=== PATIENT | female | born 1990 | race Caucasian/White ===

== ENCOUNTER 2020-06-12 12:31 | Emergency (ER) | payer OTHER, SELFPAY ==
[2020-06-12 12:59] VITALS: BP 139/98; PULSE 87; RESP 18; TEMP 36.5; O2SAT 100
--- NOTE | 2020-06-12 13:08 | ED.SKABFB ---
HPI - Skin/Abscess/Foreign Bdy General Chief complaint: Skin/Abscess/Foreign Body Stated complaint: blister on upper lip Time Seen by Provider: 06/12/20 13:08 Source: patient and RN notes reviewed Mode of arrival: ambulatory Limitations: no limitations History of Present Illness HPI narrative: 30-year-old female presents with concern for fever blister on her upper lip. Reports history of getting these, has been treated before with Valtrex. She reports she tried Abreva with no relief. She reports the blisters painful. MD complaint: lesion Related Data Home Medications Medication Instructions Recorded Confirmed levonorgestrel [Mirena] 1 device INTRAUTERINE ONCE 06/12/20 06/12/20 Allergies Allergy/AdvReac Type Severity Reaction Status Date / Time No Known Allergies Allergy Verified 06/12/20 13:13 Review of Systems Review of Systems: Narrative: CONSTITUTIONAL: Denies malaise, chills, sweats, or fever. EYES: Denies visual changes, redness, or discharge. ENT: Denies rhinorrhea, congestion, sinus pain, otalgia or sore throat. Reports oral herpes lesion CARDIOVASCULAR: Denies chest pain, palpitations RESPIRATORY: Denies cough or dyspnea. SKIN: Denies rash or itching. MUSCULOSKELETAL: Denies myalgia. NEUROLOGIC: Denies headache. All systems reviewed & are unremarkable except as noted in HPI and below PMFSH Social History Social History Smoking status: Never smoker Substance use: never Gender identity (if verbalized by the patient): Female Spiritual care concerns: No Comments At time of signature, agree with nursing past medical, surgical, social and family history. There is no relevant family history pertinent to the presenting complaint Exam Narrative: Exam Narrative: GENERAL: Well-appearing, well-nourished, and in no acute distress. HEAD: Normocephalic, atraumatic. EYES: PERRLA, conjunctivae clear, and EOMI. No nystagmus. ENT: Nares clear. Mucous membranes moist. Oropharynx without erythema or lesions. Oral herpes lesion noted on upper lip NECK: Supple. CHEST: No respiratory distress. Speaks in full sentences. HEART: Regular rate and rhythm. SKIN: Warm, dry, no rash. NEURO: Alert and oriented x3. N PSYCH: Normal mood and affect Course Course Emergency Course: Patient is aware of diagnosis, understands and agrees to treatment plan. Anticipatory guidance given. Patient agrees to follow-up as directed and is aware of reasons to seek care at the emergency department. Portions of this record may have been created with voice recognition software Vital Signs Vital signs: Vital Signs Temperature 97.7 F 06/12/20 12:59 Pulse Rate 87 06/12/20 12:59 Respiratory Rate 18 06/12/20 12:59 Blood Pressure 139/98 H 06/12/20 12:59 Pulse Oximetry 100 06/12/20 12:59 Temperature 97.7 F 06/12/20 12:59 Pulse Rate 87 06/12/20 12:59 Respiratory Rate 18 06/12/20 12:59 Blood Pressure 139/98 H 06/12/20 12:59 Pulse Oximetry 100 06/12/20 12:59 Reviewed. Patient has been instructed to follow up with her primary care provider within the next week regarding her elevated blood pressure today. MDM - Skin/Abscess/Foreign Bdy MDM Narrative Medical decision making narrative: Exam findings show no acute concerns or changes; patient is non-toxic appearing and is in no distress. Patient is appropriate for outpatient treatment and follow-up. Critical Care Time Critical Care Time Critical Care Time: No Discharge Plan Discharge Clinical Impression: Oral herpes simplex infection Patient Disposition: Home, Self-Care Condition: Stable Instructions: Antibiotic Form, Oral Herpes Simplex Virus Infections (ED) Additional Instructions: 1) Please follow-up with your primary care doctor if you develop new concerns or symptoms. 2) If you have any urgent concerns please go to the ER. 3) Please take medications as prescribed and continue taking your home medications as usual. 4) Please read and
== END 2020-06-12 13:32 | disposition home or self-care (01) ==
PROVIDERS: Emergency Provider Nurse Practitioner
DX: B00.1 Herpesviral vesicular dermatitis (principal)
CPT/HCPCS: 99213; G0463

== ENCOUNTER 2021-02-14 15:35 | Emergency (ER) | payer OTHER, SELFPAY ==
[2021-02-14 15:43] VITALS: BP 120/69; PULSE 72; RESP 16; TEMP 35.9; O2SAT 100
--- NOTE | 2021-02-14 15:45 | ED.URI ---
HPI - URI/Sore Throat General Chief Complaint: Upper Respiratory Infection Stated Complaint: sinus infection Time Seen by Provider: 02/14/21 15:46 Source: patient and RN notes reviewed Mode of arrival: ambulatory Limitations: no limitations History of Present Illness HPI Narrative: 31-year-old female presents to the [facility] with runny nose, sinus congestion since Wednesday, 4 days. Has tried [id number] medications with minimal to no relief. Patient reports that she had Covid last month and does not feel the same. Related Data Home Medications Medication Instructions Recorded Confirmed levonorgestrel [Mirena] 1 device INTRAUTERINE ONCE 06/12/20 06/12/20 Allergies Allergy/AdvReac Type Severity Reaction Status Date / Time No Known Allergies Allergy Verified 02/14/21 15:40 Review of Systems Review of Systems: All systems reviewed & are unremarkable except as noted in HPI and below Constitutional: Constitutional: Reports no additional constitutional complaints Eyes: Eyes: Reports no additional eye complaints ENT: Reports as per HPI, Reports nasal congestion and Denies sore throat Cardiovascular: Cardiovascular: Reports no additional cardiovascular complaints Respiratory: Respiratory: Reports no additional respiratory complaints Genitourinary: Genitourinary: Reports no additional female genitourinary complaints Musculoskeletal: Musculoskeletal: Reports no additional musculoskeletal complaints Integumentary/Breasts: Skin/Breast: Reports system reviewed and no additional complaints, except as docu Neurologic: Reports system reviewed and no additional complaints, except as documented Psychiatric: Psychiatric: Reports no additional psychiatric complaints Allergic/Immunologic: Allergic/Immunologic: Reports no additional allergic/immunologic complaints PMFSH Social History Social History Smoking status: Never smoker Substance use: never Gender identity (if verbalized by the patient): Female Spiritual care concerns: No Comments At the time of my signature, I reviewed and agree with the nursing past medical, surgical, social, and family history. There is no relevant family history pertinent to the patient complaint. Exam Const: General: no acute distress, alert and ill appearing acutely (Mildly) Nutritional Appearance: well nourished Orientation/consciousness: patient oriented x3 Limitations: no limitations HENMT: Head: normal to inspection Ears: external ears normal, TM's normal bilaterally and EAC's normal General nose exam: Normal external nose present and Abnormal mucous membranes and turbinates present boggy; not erythematous Face and sinus: face symmetric, no ecchymosis and sinus tenderness frontal and maxillary Mouth: Yes Normal oral and palatal mucosa present and Yes lip normal Throat: posterior oropharynx normal and uvula midline Eyes: Conjunctivae: conjunctivae normal Pupils: Equal, round and reactive pupils present Neck: Neck: normal visual inspection, no lymphadenopathy and no meningeal signs Chest: Chest palpation & inspection: normal inspection of the chest Resp: Effort & Inspection: normal respiratory effort Auscultation: clear to auscultation bilaterally Cardio: Rate: regular rate Rhythm: regular rhythm GI: GI Palp: Yes Soft to palpation and No Tenderness to palpation present (GI) : General: Yes no CVA tenderness Back/Spine/Pelvis: Back: no CVA tenderness Skin: General skin exam: normal color Rashes: no rashes Wounds: no wounds Neuro: General: patient oriented x3, moves all extremities, no meningeal signs and no focal motor deficits Speech: normal speech Gait exam (Neuro): Normal gait present Extrem: General: normal to inspection Psych: Appearance: grossly normal and well kempt Mental Status: mental status grossly normal Affect: normal affect Attitude: cooperative Thought content: Yes Normal thought content present Course Course Emergency Course: D
== END 2021-02-14 16:23 | disposition home or self-care (01) ==
PROVIDERS: Emergency Provider Nurse Practitioner
DX: J32.9 Chronic sinusitis, unspecified (principal); B34.9 Viral infection, unspecified
CPT/HCPCS: 87426; 87804; 99213; C9803; G0463

== ENCOUNTER 2023-06-03 20:30 | Emergency (ER) | payer OTHER, SELFPAY ==
[2023-06-03 20:32] VITALS: BP 147/78; PULSE 98; RESP 16; TEMP 36.2; O2SAT 99
--- NOTE | 2023-06-03 22:34 | ED.SKABFB ---
HPI - Skin/Abscess/Foreign Bdy General Chief complaint: Skin/Abscess/Foreign Body Stated complaint: abscess in back of head Time Seen by Provider: 06/03/23 22:19 Source: patient Mode of arrival: ambulatory Limitations: no limitations History of Present Illness HPI narrative: This is a 33-year-old female that presents to the emergency department for this on her scalp. Present over the last couple of days. She tried to pop it yesterday. Her pain got worse which prompted her to be seen. Denies fevers or drainage. Related Data Home Medications Medication Instructions Recorded Confirmed levonorgestrel 21 mcg/24 hours (8 1 device intrauterine ONCE 06/12/20 06/12/20 yrs) 52 mg intrauterine device (Mirena) Allergies Allergy/AdvReac Type Severity Reaction Status Date / Time No Known Allergies Allergy Verified 06/03/23 20:30 Review of Systems Review of Systems: CONSTITUTIONAL: Denies fever SKIN: Reports edema and erythema All systems reviewed & are unremarkable except as noted in HPI and below PMFSH Past Medical History Medical History (Updated 06/03/23 @ 23:07 by Sol Plascencia PA-C) No active medical problems Social History Social History Smoking status: Never smoker Substance use: never Gender identity (if verbalized by the patient): Female Spiritual care concerns: No Exam Narrative: GENERAL: Well-appearing, well-nourished, and in no acute distress. HEAD: Normocephalic, atraumatic. 1.5cm circular area of erythema and edema with central fluctuance EYES: EOMI. NECK: Supple. No adenopathy or masses. CHEST: Clear to auscultation. No respiratory distress. No wheezes rales or rhonchi HEART: Regular rate and rhythm. No murmur heard. Normal peripheral pulses. EXTREMITIES: Normal range of motion. No edema. SKIN: Warm, dry, no rash. NEURO: No focal deficits. Alert and oriented x3. PSYCH: Normal mood and affect Course Course Emergency Course: Patient updated agrees with plan of care. Educated on wound care Vital Signs Vital signs: Vital Signs Temperature 97.2 F L 06/03/23 20:32 Pulse Rate 98 06/03/23 20:32 Respiratory Rate 16 06/03/23 20:32 Blood Pressure 147/78 H 06/03/23 20:32 Pulse Oximetry 99 06/03/23 20:32 Oxygen Delivery Room Air 06/03/23 20:32 Temperature 97.2 F L 06/03/23 20:32 Pulse Rate 98 06/03/23 20:32 Respiratory Rate 16 06/03/23 20:32 Blood Pressure 147/78 H 06/03/23 20:32 Pulse Oximetry 99 06/03/23 20:32 Oxygen Delivery Room Air 06/03/23 20:32 Procedures Abscess I/D scalp: Date of Incision: 06/03/23 Time of Incision: 23:11 Local Anesthetic: lidocaine 1% and with epi Amount of anesthesia used (mL): 2 Technique: incised with #11 blade Packing used?: none I&D Results: Pus and Blood MDM - Skin/Abscess/Foreign Bdy MDM Narrative Medical decision making narrative: Patient presents to the emergency department for a small abscess present on her scalp. She is afebrile and nontoxic appearing. Abscess was successfully drained. Patient will be started on p.o. antibiotics. She is to follow up with her primary provider. She was given warnings to return to the ER Differential Diagnosis Differential diagnosis: Likely abscess of skin or subcutaneous tissue and cellulitis Critical Care Time Critical Care Time Critical Care Time: No Discharge Plan Discharge Clinical Impression: Abscess Patient Disposition: Home, Self-Care Condition: Stable Instructions: Antibiotic Form, Abscess (ED) Additional Instructions: Return if symptoms worsen or concerns: any increase in redness, swelling, pain or fever over 101 Take antibiotics as directed. Clean wound with mild soapy water. Apply antibiotic ointment and clean dressing at least three times daily. Warm compresses 3 times a day for 30 minutes each Follow up with primary care in the next 2-3 days for re-evaluation Pr
[2023-06-03] MEDS: IBUPROFEN 600 MG TABLET PO (22:40)
== END 2023-06-03 23:54 | disposition home or self-care (01) ==
PROVIDERS: Emergency Provider Physician Assistant; PCP Family Medicine
DX: L02.811 Cutaneous abscess of head [any part, except face] (principal)
CPT/HCPCS: 10060; 87070; 87077; 87186; 87205; 99283; A9270

== ENCOUNTER 2024-11-23 18:19 | Emergency (ER) | payer OTHER, SELFPAY ==
--- OUTSIDE RECORDS SUMMARY | 2024-11-23 18:22 | XMS_ITS | Clinical Summary ---
Author Organization [facility] Address [address] [place] [id number] Care Team Providers Care Clothing And Textiles Teacher Name Role Phone Tono Reyes MD Unavailable [phone] Yosi Coles MD Primary Care Provider [phone] Allergies No known active allergies Medications HYDROcodone-acet aminophen (NORCO) 5-325 mg per tabletIndication s:Pain Take 1 tablet by mouth every 6 (six) hours as needed for pain 10 tablet 08/26/2023 Active Active Problems Problem Noted Date Diagnosed Date Strep pharyngitis 08/26/2023 Hepatitis C 03/20/2019 Supervision of high-risk , unspecified trimester 03/13/2019 Overview (03/13/2019): [] Co-management vs. [] Full [facility] Care; Referring Provider: Tono Reyes [phone] [x] Dating Criteria: LMP 10/30/18; US 01/12/19 with LUCÍA 08/06/19 [x] Labs: Rh [A+], Ab [negative], Rubella [immune], HIV [non-reactive], HepBSAg [non-reactive], RPR [not done], GC/CT [not done] [] Genetic Screening: [x] CBC/Hgb 12.6/38.1/plt 314 [] Early 1hr GTT (if indicated) [] UCx: [] Pap: [] LD ASA (if indicated) starting at 12 weeks: [] EPDS [ ]; PNBHS referral (if indicated) 2nd Tri Labs: [] Anatomy ultrasound: [] CBC/1hr gtt at 24-28wks: [] Flu Shot (Feb-May): [] Tdap (27-36wks): [] Rhogam at 28 wks (if Rh neg): 3rd Tri Labs: [] CBC/HIV/RPR/T&S: [] GBS: [] GC/CT (if indicated): Counselling [] MOD: [] Place of delivery: [] MOC: [] Method of feeding: [] Web Solutions Architect: [] PP Depression Discussed: Social History Tobacco Use Types Packs/Day Years Used Date Smoking Tobacco: Never Assessed Personal Safety Answer Date Recorded Have you ever been in or are you currently in a harmful physical or emotional relationship or is someone making you feel afraid or unsafe? Denies 08/26/2023 Comments No Sex and Gender Information Value Date Recorded Sex Assigned at Not on file Legal Sex Female 3:03 PM CDT Gender Identity Not on file Sexual Orientation Not on file Obstetrics History Para Term AB IAB SAB Ectopic Multiple Livin g Live Births 1 Date Outcome GA Total Labor Labor/2nd/3rd Weight Sex Type Anes PTL Estelita A1 A5 Name Clin Last Filed Vital Signs Vital Sign Reading Time Taken Comments Blood Pressure 164/87 08/26/2023 11:15 AM INSTALLATION SPECIALIST Pulse 84 08/26/2023 11:15 AM INSTALLATION SPECIALIST Temperature 36.5 C (97.7 F) 08/26/2023 8:57 AM INSTALLATION SPECIALIST Respiratory Rate 18 08/26/2023 11:15 AM INSTALLATION SPECIALIST Oxygen Saturation 97% 08/26/2023 11:15 AM INSTALLATION SPECIALIST Inhaled Oxygen Concentration - - Weight 95.3 kg (210 lb) 08/26/2023 8:57 AM INSTALLATION SPECIALIST Height 165.1 cm (5' 5) 08/26/2023 8:57 AM INSTALLATION SPECIALIST Body Mass Index 34.95 08/26/2023 8:57 AM INSTALLATION SPECIALIST Plan of Treatment Health Maintenance Due Date Last Done Comments Cervical Cancer Screening 1990 Depression Screening 1990 Varicella Vaccines (1 of 2 - 13+ 2-dose series) 2003 Hepatitis B Screening 01/13/2008 Regular Well Visit/Exam 18-64 01/13/2008 Pneumococcal vaccine <65 (1 of 2 - PCV) 2009 Covid-19 Vaccine (3 - 2024-25 season) 2024 09/15/2020, 08/23/2020 Influenza Vaccine (Season Ended) 2025 02/23/2023, 07/24/2019 DTaP/Tdap/Td Vaccine (2 - Td or Tdap) 07/24/2029 07/24/2019 Hepatitis C Screening Completed 03/20/2019 , 03/20/2019, 03/20/2019, Additional history exists HPV Vaccines Aged Out No longer eligi ble based on patient's age to complete this topic Procedures Procedure Name Priority Date/Time Associated Diagnosis Comments HEPATITIS C ANTIBODY Routine 01/26/2019 from Last 3 Months or Most Recently Relevant to Health Maintenance Results * Hepatitis C antibody (01/26/2019) SCRIBED HCV ab reactive Blood specimen (specimen) us Tono Reyes MD LAB MICROBIOLOGY - GENERAL OR DERABLES Final Result from Last 3 Months or Most Recently Relevant to Health Maintenance Care Teams Clothing And Textiles Teacher Relationship Specialty Start Date End Date Yosi Coles MD [address] [place] [address] [place] [address] PCP - General Family Medicine 08/26/23 Tono Reyes MD [address] [facility] [place] [address] Referring Physician Obstetrics and Gynecology 02/06/19
--- OUTSIDE RECORDS SUMMARY | 2024-11-23 18:22 | XMS_ITS | Continuity of Care Document ---
Author Organization [facility] Address [address] [place] [address] [address] [place] [address] Phone Care Team Providers Care Aerospace Engineer Officer Armament Name Role Phone Boyd OD, Amrik Unavailable Unavailable Procedures Procedure Date Eye Exam, New Patient Refraction Advance Directives Directive Yes / No Effective Date File Name No Information Encounters Encounter Description Practice Location Reason(s) For Visit Diagnoses Date Provider Providers Copied on Encounter [facility], [id number] [place] [address] [address], [place], [place], [id number], [place] tel:[phone] [facility] No Information 5-200 7 Boyd OD Amrik. [address] [place] , [address], [place], [address], [place]. tel:[phone] Family History Family Member Type Diagnosis Age At Onset No Information Payers Payer name Insurance type Covered republican ID Authoriza tion(s) Medicaid [facility] [id number] Social History Type Description Quantity Date Captured Comments Sex Female Smoking Status No Information Chief Complaint And Reason For Visit No Information Reason For Referral Reason For Referral No Information History Of Present Illness Encounter Date Complaint History Of Prese nt Illness No Information Functional Status Date Functional Assessmen t No Information Instructions Date Instruction Additional Infor mation No Information Assessments Type Assessment Date No Information Patient Care Teams Name Effective Dates (start - stop) Status Members No Information
--- OUTSIDE RECORDS SUMMARY | 2024-11-23 18:22 | XMS_ITS | Referral Summary ---
Author Organization [facility] Address [address] [place] [id number] Care Team Providers Care Etl Architect Name Role Phone Tono Reyes MD Unavailable [phone] Yosi Coles MD Primary Care Provider [phone] Allergies No known active allergies Medications HYDROcodone-acet aminophen (NORCO) 5-325 mg per tabletIndication s:Pain Take 1 tablet by mouth every 6 (six) hours as needed for pain 10 tablet 08/26/2023 Active Active Problems Problem Noted Date Diagnosed Date Strep pharyngitis 08/26/2023 Hepatitis C 03/20/2019 Supervision of high-risk , unspecified trimester 03/13/2019 Overview (03/13/2019): [] Co-management vs. [] Full [facility] Care; Referring Provider: Tono Reyes [phone] [x] Dating Criteria: LMP 10/30/18; US 01/12/19 [...] [] MOC: [] Method of feeding: [] Board Operator: [] PP Depression Discussed: Social History Tobacco [...] on file Sexual Orientation Not on file Last Filed Vital Signs Vital Sign Reading Time Taken Comments Blood Pressure 164/87 08/26/2023 11:15 AM SPACE PLANNER Pulse 84 08/26/2023 11:15 AM SPACE PLANNER Temperature 36.5 C (97.7 F) 08/26/2023 8:57 AM SPACE PLANNER Respiratory Rate 18 08/26/2023 11:15 AM SPACE PLANNER Oxygen Saturation 97% 08/26/2023 11:15 AM SPACE PLANNER Inhaled Oxygen Concentration - - Weight 95.3 kg (210 lb) 08/26/2023 8:57 AM SPACE PLANNER Height 165.1 cm (5' 5) 08/26/2023 8:57 AM SPACE PLANNER Body Mass Index 34.95 08/26/2023 8:57 AM SPACE PLANNER Plan of Treatment Not on file Procedures Procedure Name Priority Date/Time Associated Diagnosis Comments HEPATITIS C ANTIBODY Routine 01/26/2019 from Last 3 Months or Most Recently Relevant to Health Maintenance Results * Hepatitis C antibody (01/26/2019) SCRIBED HCV ab reactive Blood specimen (specimen) us Tono Reyes MD LAB MICROBIOLOGY - GENERAL OR DERABLES Final Result from Last 3 Months or Most Recently Relevant to Health Maintenance Care Teams Etl Architect Relationship Specialty Start Date End Date Yosi Coles MD [address] [facility] [place] [address] PCP - General Family Medicine 08/26/23 Tono Reyes MD [address] [place], [place] [id number] Referring Physician Obstetrics and Gynecology 02/06/19
--- OUTSIDE RECORDS SUMMARY | 2024-11-23 18:22 | XMS_ITS | Data Portability ---
Author Organization [place] [facility] [place], Main Office Address [address] [place] [address] Care Team Providers Care Asphalt Paver Operator Name Role Phone YOSI COLES Primary Care Provider YOSI COLES Referring Provider YOSI COLES Primary Care Provider [phone] Assessment Encounter Date Assessment Date Assessment LastModified by Organization Details LastModified Time 01/07/2023 01/07/2023 32 yo F with - VIT B12 DEFICIENCY, new - MICROSCOPIC HEMATURIA, new - PRE-DM, new - ELEVATED LFTs - HEP C, chronic - DEPRESSION - ANXIETY - CHRONIC INSOMNIA - CHRONIC NECK PAIN - CHRONIC HEADACHES - MIGRAINE - GERD - FOOT CALLUS - OBESITY II HbA1c: 6.0(12/09/22) X-ray C-spine: 12/09/22. Annual labs: 12/09/22. Hepatitis panel: 09/18/21. Annual labs: 08/28/21. Wt: 241(01/07/23) D/w pt in detail about her findings, recent labs & imagines and further plan of care. Will refer pt to Uro, Neuro and PT. Meds as directed. Advised pt to talk with close friend/family member on a regular basis. Educated about alarming symptoms to monitor at home and call us back Or get checked in ED. Pt verbalized understanding it. Diet and exercise explained. Diet and exercise explained in detail. Educated about different options for her. Safe sex education given. F/u with Counsellor as per schedule. F/u with PT as per schedule. F/u with Neuro as per schedule. F/u with Uro as per schedule. Cont f/u with GI as per schedule. Cont f/u with Gyne as per schedule. Offered to refer to Psych; but pt declined. HM: WWE - 2 yrs ago. Cont f/u with Gyne as per schedule. Flu - Pt declined. Tdap, Gardasil, Hep B - At HD/pharmacy. F/u in 1 month. A1c in 04/19. Annual labs in 12/18. Not available 01/07/2023 11:45:01 03/10/2023 03/10/2023 33 yo F with - MIDDLE BACK PAIN, Lt - VIT B12 DEFICIENCY, new - MICROSCOPIC HEMATURIA, new - PRE-DM, new - ELEVATED LFTs - HEP C, chronic - DEPRESSION - ANXIETY - CHRONIC INSOMNIA - CHRONIC NECK PAIN - CHRONIC HEADACHES - MIGRAINE - GERD - FOOT CALLUS - OBESITY II HbA1c: 6.0(12/09/22) X-ray C-spine: 12/09/22. Annual labs: 12/09/22. Hepatitis panel: 09/18/21. Annual labs: 08/28/21. Wt: 241(01/07/23) [Pt stopped] D/w pt in detail about her findings, recent labs & imagines and further plan of care. Explained about different options for her. Will do x-ray. Meds as directed. Advised pt to talk with close friend/family member on a regular basis. Educated about alarming symptoms to monitor at home and call us back Or get checked in ED. Pt verbalized understanding it. Diet and exercise explained. Diet and exercise explained in detail. Educated about different options for her. Safe sex education given. F/u with Counsellor as per schedule. F/u with PT as per schedule. F/u with Neuro as per schedule. F/u with Uro as per schedule. Cont f/u with GI as per schedule. Cont f/u with Gyne as per schedule. Offered to refer to Psych; but pt declined. HM: WWE - 2 yrs ago. Cont f/u with Gyne as per schedule. Flu - 03/20. Tdap, Gardasil, Hep B - At HD/pharmacy. F/u in 2 months. A1c in 04/19. Annual labs in 12/18. [email or web address] Not available 03/10/2023 13:05:03 07/14/2023 07/14/2023 33 yo F with - MIDDLE BACK PAIN, Lt; chronic - VIT B12 DEFICIENCY - MICROSCOPIC HEMATURIA - PRE-DM, new - ELEVATED LFTs - HEP C, chronic - DEPRESSION - ANXIETY - CHRONIC INSOMNIA - CHRONIC NECK PAIN - CHRONIC HEADACHES - MIGRAINE - GERD - FOOT CALLUS - OBESITY II HbA1c: 6.0(12/09/22) X-ray C-spine: 12/09/22. Annual labs: 12/09/22. Hepatitis panel: 09/18/21. Annual labs: 08/28/21. Wt: 241(01/07/23) [Pt stopped] D/w pt in detail about her findings, recent labs & imagines and further plan of care. Explained about different options for her. Will do x-ray. All meds verified with pt. Meds as directed. Advised pt to talk with close friend/family member on a regular basis. Educated about alarming symptoms to monitor at home and call us back Or get checked in ED. Pt verbalized understanding it. Diet and exercise explained. Diet and exercise explained in detail. Educated about different options for her. Safe sex education given. F/u with Counsellor as per schedule. F/u with PT as per schedule. F/u with Neuro as per schedule. F/u with Uro as per schedule. Cont f/u with GI as per schedule. Cont f/u with Gyne as per schedule. Offered to refer to Psych; but pt declined. HM: WWE - 2 yrs ago. Cont f/u with Gyne as per schedule. Flu - 03/20. Tdap, Gardasil, Hep B - At HD/pharmacy. F/u in few weeks for Annual exam. Annual labs in 12/18. [email or web address] Not available 07/14/2023 14:46:43 07/19/2024 07/19/2024 34 yo F with - B/L WRIT PAIN, chronic - B/L HIP PAIN, chronic - CHRONIC LOW BACK PAIN - DEPRESSION - ANXIETY - CHRONIC INSOMNIA - VIT B12 DEFICIENCY - MICROSCOPIC HEMATURIA - PRE-DM, new - ELEVATED LFTs - HEP C, chronic - CHRONIC NECK PAIN - CHRONIC HEADACHES - MIGRAINE - GERD - FOOT CALLUS - OBESITY II HbA1c: 6.0(12/09/22) X-ray C-spine: 12/09/22. Annual labs: 12/09/22. Hepatitis panel: 09/18/21. Annual labs: 08/28/21. Wt: 241(01/07/23) [Pt stopped] D/w pt in detail about her findings, recent labs & imagines and further plan of care. Explained about different options for her. Will do x-rays. Will refer pt to Psych. All meds verified with pt. Meds as directed. Advised pt to talk with close friend/family member on a regular basis. Educated about alarming symptoms to monitor at home and call us back Or get checked in ED. Pt verbalized understanding it. Diet and exercise explained. Diet and exercise explained in detail. Educated about different options for her. Safe sex education given. F/u with Psych as per schedule. F/u with Counsellor as per schedule. F/u with PT as per schedule. F/u with Neuro as per schedule. F/u with Uro as per schedule. Cont f/u with GI as per schedule. Cont f/u with Gyne as per schedule. HM: WWE - 2 yrs ago. Cont f/u with Gyne as per schedule. Flu - 03/20. Tdap, Gardasil, Hep B - At HD/pharmacy. F/u in 2-3 weeks. Annual labs in 12/18. [email or web address] Not available 07/19/2024 15:38:55 08/09/2024 08/09/2024 34 yo F with - B/L WRIT PAIN, chronic - B/L HIP PAIN, chronic - CHRONIC LOW BACK PAIN - DEPRESSION - ANXIETY - CHRONIC INSOMNIA - VIT B12 DEFICIENCY - MICROSCOPIC HEMATURIA - PRE-DM, new - ELEVATED LFTs - HEP C, chronic - CHRONIC NECK PAIN - CHRONIC HEADACHES - MIGRAINE - GERD - FOOT CALLUS - OBESITY II HbA1c: 6.0(12/09/22) X-ray b/l wrist, hips, L-spine: 08/08/24. X-ray C-spine: 12/09/22. Annual labs: 12/09/22. Hepatitis panel: 09/18/21. Annual labs: 08/28/21. Wt: 241(01/07/23) [Pt stopped] D/w pt in detail about her findings, recent labs & imagines and further plan of care. Explained about different options for her. Will refer pt to PT and Hand surgeon. All meds verified with pt. Meds as directed. Advised pt to talk with close friend/family member on a regular basis. Educated about alarming symptoms to monitor at home and call us back Or get checked in ED. Pt verbalized understanding it. Diet and exercise explained. Diet and exercise explained in detail. Educated about different options for her. Safe sex education given. F/u with Hand surgeon as per schedule. F/u with Psych as per schedule. F/u with Counsellor as per schedule. F/u with PT as per schedule. F/u with Neuro as per schedule. F/u with Uro as per schedule. Cont f/u with GI as per schedule. Cont f/u with Gyne as per schedule. HM: WWE - 2 yrs ago. Cont f/u with Gyne as per schedule. Flu - Pt declined. Tdap, Gardasil, Hep B - At HD/pharmacy. F/u in few weeks for Annual exam. Annual labs in 12/18. [email or web address] Not available 08/09/2024 16:06:52 Plan of Treatment Reminders Order Date Submit Date Provider Last Modified By Organization Details Last Modified Time Details Appointments Follow Up 15 2024 03:15P Meghna Wagner, PMHNP Not available Not available Not available Lab glycohemo globin, total, blood 2022 023 [email or web address] [facility] (Lab), [address] [place], [address], 04/22/2023 17:47:31 Referral physical therapist referral - Please call patient to schedule. 2024 025 [email or web address] [facility] Physical, Occupational [facility] Medicine [facility] Re[facility], [address] [place], [address], 09/12/2024 12:37:07 hand surgeon referral - Please call patient to schedule an appointme nt. Thank you. 2024 025 [email or web address] Wilma Crawford MD, [address] [facility] [address], [place], [address], 10/04/2024 09:11:07 psychiatr ist referral - Please call patient to schedule an appointme nt. Thank you. 2024 025 [email or web address] Velma Jonesprem Pmhnp, [address] [facility] [address], [place], [address], 08/16/2024 10:47:33 gastroent erologist referral - Please call patient to schedule appointme nt. 2023 024 [email or web address] Shaheed Gregg MD, [address] [facility], [facility] [address], [place], [address], 08/11/2023 08:39:31 urologist referral 2022 023 [email or web address] Jorge Klein MD, [address] [facility] [address], [place], [address], 02/04/2023 11:49:[address] referral 2022 023 [email or web address] Not available 02/04/2023 11:49:45 Procedures None recorded. Surgeries None recorded. Imaging XR, lumbosacr al spine, 4 or more view 2024 025 [email or web address] [facility] ([facility]), [address] [place], [address], 08/09/2024 09:44:25 XR, hip + pelvis, bilateral 2024 025 [facility] ([facility]), [address] [place], [address], 08/09/2024 09:44:25 XR, wrist, 3 or more view 2024 025 [facility] ([facility]), [address] [place], [address], 07/26/2024 12:03:49 XR, thoracic spine, 3 view 2023 024 [email or web address] 56 [facility] ([facility]), [address] [place], [address], 07/28/2023 09:46:09 XR, thoracic spine, 3 view 2022 023 [email or web address] 56 [facility] ([facility]), [address], [place], [address], 03/17/2023 11:05:05 Medication Orders diclofena c sodium 75 mg tablet,de layed release [address] [facility] [place]armacy #[id number], [address], [place], [address], 08/09/2024 16:01:44 cyclobenz aprine 10 mg tablet [address] [facility] [place]armacy #[id number], [address], [place], [address], 08/09/2024 16:01:43 hydroxyzi ne HCl 25 mg tablet [address] [facility] ([place] [place]Pharmacy #[id number], [address], [place], [address], 08/09/2024 16:01:45 trazodone 150 mg tablet 2024 025 [id number], [address], [place], [address], 08/09/2024 16:02:49 sertralin e 50 mg tablet [address]/Pharmacy #[id number], [address], [place], [address], 09/08/2024 15:31:06 topiramat e 50 mg tablet [address] [facility] [place]armacy #[id number], [address], [place], [address], 08/09/2024 16:01:44 diclofena c sodium 75 mg tablet,de layed release 2024 025 [id number], [address], [place], [address], 07/19/2024 15:27:52 cyclobenz aprine 10 mg tablet [address] [facility] [place]armacy #[id number], [address] [place], [address], 07/19/2024 15:27:33 hydroxyzi ne HCl 25 mg tablet 2024 025 [id number], [address] [place], [address], 09/17/2024 08:13:29 trazodone 150 mg tablet 2024 025 [id number], [address] [place], [address], 09/17/2024 08:13:29 bupropion HCl XL 150 mg 24 hr tablet, extended release 2024 025 [id number], [address] [place], [address], 08/09/2024 16:00:29 topiramat e 50 mg tablet [address] [facility] [place]acy #[id number], [address] [place], [address], 07/19/2024 15:27:32 diclofena c sodium 75 mg tablet,de layed release [address] [facility] [place]armacy #[id number], [address] [place], [address], 07/14/2023 14:29:12 cyclobenz aprine 10 mg tablet [address] [facility] [place]Pharmacy #[id number], [address], [place], [address], 07/14/2023 14:29:11 Trulicity 0.75 mg/0.5 mL subcutane ous pen injector [address] [facility] ([place] [place]armacy #[id number], [address] , [place], [address], 07/14/2023 14:29:11 hydroxyzi ne HCl 25 mg tablet [address] [facility] [place]armacy #[id number], [address] , [place], [address], 07/14/2023 14:29:12 neomycin- polymyxin -hydrocor t 3.5 mg-10,000 unit/mL-1 % ear drops,karen p [address] [facility] [place]armacy #[id number], [address] , [place], [address], 07/14/2023 14:31:06 trazodone 100 mg tablet [address] [facility] [place]armacy #[id number], [address] , [place], [address], 07/14/2023 14:29:11 cyanocoba lev (vit B-12) 1,000 mcg/mL injection solution 2023 024 Not available 07/14/2023 16:47:01 cyanocoba lev (vit B-12) 1,000 mcg sublingua l tablet [address] [facility] [place]armacy #[id number], [address] , [place], [address], 07/14/2023 14:29:13 topiramat e 50 mg tablet [address] [facility] ([place] [place]Pharmacy #[id number], [address] [place], [address], 07/14/2023 14:29:27 venlafaxi ne ER 75 mg capsule,e xtended release [address] [facility] [place]armacy #[id number], [address], [place], [address], 07/14/2023 14:29:13 diclofena c sodium 75 mg tablet,de layed release [address] [facility] [place]armacy #[id number], [address], [place], [address], 03/10/2023 12:48:05 cyclobenz aprine 10 mg tablet [address] [facility] [place]armacy #[id number], [address] [place], [address], 03/10/2023 12:48:06 Trulicity 0.75 mg/0.5 mL subcutane ous pen injector 2022 023 [email or web address] [id number] [address] , [place], [address], 04/12/2023 15:53:13 hydroxyzi ne HCl 25 mg tablet [address] [facility] [place] #[id number], [address] [facility] [place], [address], 03/10/2023 12:48:07 trazodone 100 mg tablet [address] [facility] [place]acy #[id number], [address] , [place], [address], 03/10/2023 12:48:06 cyanocoba lev (vit B-12) 1,000 mcg/mL injection solution 2022 023 Not available 03/15/2023 09:14:30 cyanocoba lev (vit B-12) 1,000 mcg sublingua l tablet [address] [facility] [place]acy #[id number], [address], [place], [address], 03/10/2023 12:48:06 venlafaxi ne ER 75 mg capsule,e xtended release [address] [facility] [place]acy #[id number], [address], [place], [address], 03/10/2023 12:48:06 diclofena c sodium 75 mg tablet,de layed release [address] [facility] [place] #[id number], [address] [place], [address], 01/07/2023 11:13:58 cyclobenz aprine 10 mg tablet [address] [facility] [place]acy #[id number], [address], [place], [address], 01/07/2023 11:13:58 metformin ER 500 mg tablet,ex tended release [address] [facility] [place] #[id number], [address] [place], [address], 01/07/2023 11:12:40 buspirone 10 mg tablet [address] [facility] [place]acy #[id number], [address], [place], [address], 01/07/2023 11:12:41 trazodone 50 mg tablet 2022 023 [email or web address] [id number], [address] [place], [address], 04/12/2023 15:53:18 cyanocoba lev (vit B-12) 1,000 mcg/mL injection solution 2022 023 Not available 01/07/2023 12:22:23 cyanocoba lev (vit B-12) 1,000 mcg sublingua l tablet [address] [facility] [place]acy #[id number], [address], [place], [address], 01/07/2023 11:12:56 phentermi ne 15 mg capsule [address] [facility] [place]acy #[id number], [address] [place], [address], 01/07/2023 11:15:49 Wegovy 0.25 mg/0.5 mL subcutane ous pen injector 2022 023 [email or web address] [facility][id number], [address] [place], [address], 07/14/2023 14:26:27 famotidin e 20 mg tablet [address] [facility] [place]acy #[id number], [address] [place], [address], 01/07/2023 11:12:57 topiramat e 50 mg tablet [address] [facility] [place]acy #[id number], [address], [place], [address], 01/07/2023 11:12:55 sumatript an 100 mg tablet [address] [facility] [place] #[id number], [address] [place], [address], 01/07/2023 11:12:57 venlafaxi ne ER 75 mg capsule,e xtended release 24 hr 2022 023 [email or web address] [id number] [address] [place], [address], 02/21/2024 10:02:57 Patient TargetsNo targets recorded. Patient Instructions Encounter Date Encounter Id Patient Instructions Last Modified By Organization Details Last Modified Time 07/19/2024 [id number] When You Want to Lose Weight: Care Instructions Not available 07/19/2024 15:39:08 08/09/2024 [id number] When You Want to Lose Weight: Care Instructions [email or web address] Not available 08/09/2024 16:01:36 Reason for Referral Urologist Referral for Micro scopic hematuria Referring Physician: Yosi Coles [facility], Encounter Date: 01/07/2023 Neurologist Referral for Homero keeley with aura Referring Physician: Yosi Coles [facility], Encounter Date: 01/07/2023 Clinical Pharmacist Referral for Chronic hepatitis C Please call patient to schedule appointment. Referring Physician: Yosi Coles [facility], Encounter Date: 07/14/2023 Psychiatrist Referral for De pressive disorder Please call patient to schedule an appointment. Thank you. Referring Physician: Yosi Coles [facility], Encounter Date: 07/19/2024 Hand Surgeon Referral for Bi lateral wrist pain B/l wrist pain, x-ray done Please call patient to schedule an appointment. Thank you. Referring Physician: Yosi Coles [facility], Encounter Date: 08/09/2024 Physical Therapist Referral for Chronic low back pain Please call patient to schedule. Referring Physician: Yosi Coles [facility], Encounter Date: 08/09/2024 Results Created Date Observation Date Name Description Value Unit Range Abnormal Flag Note LastModifiedBy Organization Detail LastModifiedTime 12/10/1912/09/2022 CBC/C OMPLE TE BLD COUNT W/DIF F white blood cells 6.1 x10'3 /uL 4.2-10 .8 Not Available [facility] (Lab) [address] [place], [address], 12/09/2022 12:05:09 12/10/19 23 12/09/2022 CBC/C OMPLE TE BLD COUNT W/DIF F red blood cells 4.65 x10'6 /uL 3.80-5 .20 Not Available [facility] (Lab) [address] [place], [address], 12/09/2022 12:05:09 12/10/19 23 12/09/2022 CBC/C OMPLE TE BLD COUNT W/DIF F hemoglobin 13.6 g/dL 12.0-1 5.6 Not Available [facility] (Lab) [address] [place], [address], 12/09/2022 12:05:09 12/10/19 23 12/09/2022 CBC/C OMPLE TE BLD COUNT W/DIF F hematocrit 41.4 % 35.7-4 5.7 Not Available [facility] (Lab) [address] [place], [address], 12/09/2022 12:05:09 12/10/19 23 12/09/2022 CBC/C OMPLE TE BLD COUNT W/DIF F mean red cell volume 89.0 fL 82.0-9 9.0 Not Available [facility] (Lab) [address] [place], [address], 12/09/2022 12:05:09 12/10/19 23 12/09/2022 CBC/C OMPLE TE BLD COUNT W/DIF F mean red cell hemoglobin 29.2 pg 27.0-3 3.0 Not Available [facility] (Lab) [address] [place], [address], 12/09/2022 12:05:09 12/10/19 23 12/09/2022 CBC/C OMPLE TE BLD COUNT W/DIF F mean RBC HGB concentratio n 32.9 g/dL 31.0-3 6.0 Not Available [facility] (Lab) [address] [place], [address], 12/09/2022 12:05:09 12/10/19 23 12/09/2022 CBC/C OMPLE TE BLD COUNT W/DIF F red cell distribution width 12.4 % 11.8-1 5.5 Not Available [facility] (Lab) [address] [place], [address], 12/09/2022 12:05:09 12/10/19 23 12/09/2022 CBC/C OMPLE TE BLD COUNT W/DIF F platelets 307 x10'3 /uL 150-40 0 Not Available [facility] (Lab) [address] [place], [address], 12/09/2022 12:05:09 12/10/1912/09/2022 CBC/C OMPLE TE BLD COUNT W/DIF F mean platelet volume 9.7 fL 9.0-12 .4 Not Available [facility] (Lab) [address] [place], [address], 12/09/2022 12:05:09 12/10/19 23 12/09/2022 CBC/C OMPLE TE BLD COUNT W/DIF F neutrophils 58.7 % 39.0-7 2.0 Not Available [facility] (Lab) [address] [place], [address], 12/09/2022 12:05:09 12/10/1912/09/2022 CBC/C OMPLE TE BLD COUNT W/DIF F lymphocytes 35.1 % 16.0-4 7.0 Not Available [facility] (Lab) [address] [place], [address], 12/09/2022 12:05:09 12/10/1912/09/2022 CBC/C OMPLE TE BLD COUNT W/DIF F monocytes 4.6 % 5.0-12 .0 low Not Available [facility] (Lab) [address] [place], [address], 12/09/2022 12:05:09 12/10/19 23 12/09/2022 CBC/C OMPLE TE BLD COUNT W/DIF F eosinophils 0.8 % 1.0-7. 0 low Not Available [facility] (Lab) [address] [place], [address], 12/09/2022 12:05:09 12/10/19 23 12/09/2022 CBC/C OMPLE TE BLD COUNT W/DIF F basophils 0.5 % 0.0-2. 0 Not Available [facility] (Lab) [address] [place], [address], 12/09/2022 12:05:09 12/10/19 23 12/09/2022 CBC/C OMPLE TE BLD COUNT W/DIF F immature granulocytes 0.3 % 0.00-0 .50 Not Available [facility] (Lab) [address] [place], [address], 12/09/2022 12:05:09 12/10/19 23 12/09/2022 CBC/C OMPLE TE BLD COUNT W/DIF F neutrophils, absolute count 3.59 x10'3 /uL 1.5-8. 0 Not Available [facility] (Lab) [address] [place], [address], 12/09/2022 12:05:09 12/10/19 23 12/09/2022 CBC/C OMPLE TE BLD COUNT W/DIF F lymphocytes, absolute count 2.15 x10'3 /uL 1.07-3 .43 Not Available [facility] (Lab) [address] [place], [address], 12/09/2022 12:05:09 12/10/19 23 12/09/2022 CBC/C OMPLE TE BLD COUNT W/DIF F monocytes, absolute count 0.28 x10'3 /uL 0.29-0 .99 low Not Available [facility] (Lab) [address] [place], [address], 12/09/2022 12:05:09 12/10/19 23 12/09/2022 CBC/C OMPLE TE BLD COUNT W/DIF F eosinophils, absolute count 0.05 x10'3 /uL 0.02-0 .53 Not Available [facility] (Lab) [address] [place], [address], 12/09/2022 12:05:09 12/10/19 23 12/09/2022 CBC/C OMPLE TE BLD COUNT W/DIF F basophils, absolute count 0.03 x10'3 /uL 0.01-0 .08 Not Available [facility] (Lab) [address] [place], [address], 12/09/2022 12:05:09 12/10/19 23 12/09/2022 CBC/C OMPLE TE BLD COUNT W/DIF F immature granulocytes ,absolute 0.02 x10'3 /uL 0.00-0 .05 Not Available [facility] (Lab) [address] [place], [address], 12/09/2022 12:05:09 12/10/19 23 12/09/2022 CBC/C OMPLE TE BLD COUNT W/DIF F nucleated red blood cells 0.0 % -0 Not Available [facility] (Lab) [address] [place], [address], 12/09/2022 12:05:09 12/10/19 23 12/09/2022 CBC/C OMPLE TE BLD COUNT W/DIF F NRBC# 0.00 x10'3 /uL Not Available [facility] (Lab) [address] [place], [address], 12/09/2022 12:05:09 12/10/19 23 12/09/2022 URINA LYSIS COMPL ETE/I RIS W/RFX color LIGHT- YELLOW Not Available [facility] (Lab) [address] [place], [address], 12/09/2022 12:23:29 12/10/19 23 12/09/2022 URINA LYSIS COMPL ETE/I RIS W/RFX appear TURBID abnormal Not Available [facility] (Lab) [address] [place], [address], 12/09/2022 12:23:29 12/10/19 23 12/09/2022 URINA LYSIS COMPL ETE/I RIS W/RFX specific gravity 1.021 1.001- 1.030 Not Available [facility] (Lab) [address] [place], [address], 12/09/2022 12:23:29 12/10/19 23 12/09/2022 URINA LYSIS COMPL ETE/I RIS W/RFX pH 5.0 pH_un its 5.0-9. 0 Not Available [facility] (Lab) [address] [place], [address], 12/09/2022 12:23:29 12/10/19 23 12/09/2022 URINA LYSIS COMPL ETE/I RIS W/RFX leukocytes NEGATI VE tiffany/u L negati ve- Not Available [facility] (Lab) [address] [place], [address], 12/09/2022 12:23:29 12/10/19 23 12/09/2022 URINA LYSIS COMPL ETE/I RIS W/RFX nitrite NEGATI VE negati ve- Not Available [facility] (Lab) [address] [place], [address], 12/09/2022 12:23:29 12/10/19 23 12/09/2022 URINA LYSIS COMPL ETE/I RIS W/RFX protein NEGATI VE mg/dL negati ve- Not Available [facility] (Lab) [address] [place], [address], 12/09/2022 12:23:29 12/10/19 23 12/09/2022 URINA LYSIS COMPL ETE/I RIS W/RFX glucose NORMAL mg/dL normal - Not Available [facility] (Lab) [address] [place], [address], 12/09/2022 12:23:29 12/10/19 23 12/09/2022 URINA LYSIS COMPL ETE/I RIS W/RFX ketones NEGATI VE mg/dL negati ve- Not Available [facility] (Lab) [address] [place], [address], 12/09/2022 12:23:29 12/10/19 23 12/09/2022 URINA LYSIS COMPL ETE/I RIS W/RFX urobilinogen NORMAL mg/dL normal - Not Available [facility] (Lab) [address] [place], [address], 12/09/2022 12:23:29 12/10/19 23 12/09/2022 URINA LYSIS COMPL ETE/I RIS W/RFX bilirubin NEGATI VE mg/dL negati ve- Not Available [facility] (Lab) [address] [place], [address], 12/09/2022 12:23:29 12/10/19 23 12/09/2022 URINA LYSIS COMPL ETE/I RIS W/RFX blood NEGATI VE mg/dL negati ve- Not Available [facility] (Lab) [address] [place], [address], 12/09/2022 12:23:29 12/10/19 23 12/09/2022 URINA LYSIS COMPL ETE/I RIS W/RFX white blood cells 0-8 /i??h pfi?? 0-8 Not Available [facility] (Lab) [address] [place], [address], 12/09/2022 12:23:29 12/10/19 23 12/09/2022 URINA LYSIS COMPL ETE/I RIS W/RFX red blood cells 5-10 /i??h pfi?? 0-4 abnormal Not Available [facility] (Lab) [address] [place], [address], 12/09/2022 12:23:29 12/10/19 23 12/09/2022 URINA LYSIS COMPL ETE/I RIS W/RFX bacteria NONE Not Available [facility] (Lab) [address] [place], [address], 12/09/2022 12:23:29 12/10/19 23 12/09/2022 URINA LYSIS COMPL ETE/I RIS W/RFX mucous OCCASI ONAL /i??l pfi?? abnormal Not Available [facility] (Lab) [address] [place], [address], 12/09/2022 12:23:29 12/10/19 23 12/09/2022 URINA LYSIS COMPL ETE/I RIS W/RFX squamous epithelial PACKED FIELD /i??l pfi?? abnormal Not Available [facility] (Lab) [address] [place], [address], 12/09/2022 12:23:29 12/10/19 23 12/09/2022 VITAM IN D 25-HY DROXY vd25oh 44.7 NG/mL 30-100 Vitam in D Statu s: Defic ient: <20 ng/mL Insuf ficie nt: 20-29 ng/mL Suffi cient : 30-10 0 ng/mL Not Available [facility] (Lab) [address] [place], [address], 12/09/2022 13:28:24 12/10/19 23 12/09/2022 COMPR EHENS PHI METAB OLIC PANEL sodium 138 mmol/ L 137-14 5 Not Available [facility] (Lab) [address] [place], [address], 12/09/2022 14:21:00 12/10/19 23 12/09/2022 COMPR EHENS PHI METAB OLIC PANEL potassium 4.2 mmol/ L 3.5-5. 1 Not Available [facility] (Lab) [address] [place], [address], 12/09/2022 14:21:00 12/10/19 23 12/09/2022 COMPR EHENS PHI METAB OLIC PANEL chloride 103 mmol/ L 98-107 Not Available [facility] (Lab) [address] [place], [address], 12/09/2022 14:21:00 12/10/19 23 12/09/2022 COMPR EHENS PHI METAB OLIC PANEL carbon dioxide 26 mmol/ L 22-30 Not Available [facility] (Lab) [address] [place], [address], 12/09/2022 14:21:00 12/10/19 23 12/09/2022 COMPR EHENS PHI METAB OLIC PANEL anion gap 13.2 mmol/ L 14-22 low Not Available [facility] (Lab) [address] [place], [address], 12/09/2022 14:21:00 12/10/19 23 12/09/2022 COMPR EHENS PHI METAB OLIC PANEL glucose 87 mg/dL 70-99 Not Available [facility] (Lab) [address] [place], [address], 12/09/2022 14:21:00 12/10/19 23 12/09/2022 COMPR EHENS PHI METAB OLIC PANEL BUN 14 mg/dL 8-19 Not Available [facility] (Lab) [address] [place] [place], [address], 12/09/2022 14:21:00 12/10/19 23 12/09/2022 COMPR EHENS PHI METAB OLIC PANEL creatinine 0.68 mg/dL 0.66-1 .25 Not Available [facility] (Lab) [address] [place], [address], 12/09/2022 14:21:00 12/10/19 23 12/09/2022 COMPR EHENS PHI METAB OLIC PANEL GFR >60 Refer ence Range : Elizabeth ge GFR Healt hy Adult : >60 mL/mi n/1.7 3 m2 Chron ic Kidne y Disea se: 15-60 mL/mi n/1.7 3 m2 Kidne y Failu re: <15/m L/min /1.73 m2 www.n iddk. nih.g ov The MDRD study equat ion has not been valid ated in child sagrario <18 years of age; pregn ant women ; the elder ly >85 years of age; or in some racia l or ethni c subgr oups, such as Hisok nics. Outsi de the valid ated scott eters , estim ated GFR is less accur ate, requi ring clini nick judgm ent on a case- by-ca se basis . Clini nick inter preta tion for other races and ages must be made by the clini anupama. The MDRD study equat ion has not been valid ated for the evalu ation of serum creat inine relat ed to nutri osbaldo l statu s or medic ation usage . For perso ns <18 years of age, a pedia tric GFR calcu lator is avail able on the [facility] websi te: https ://lori w.edda singletary.o rg/pr ofess ional s/kdo qi/gf r_cal culat or Not Available [facility] (Lab) [address] [place], [address], 12/09/2022 14:21:00 12/10/1912/09/2022 COMPR EHENS PHI METAB OLIC PANEL alkaline phosphatase 21 U/L 38-126 low Not Available [facility] (Lab) [address] [place], [address], 12/09/2022 14:21:00 12/10/19 23 12/09/2022 COMPR EHENS PHI METAB OLIC PANEL alanine aminotransfe rase 52 U/L 0-35 high Not Available [facility] (Lab) [address] [place], [address], 12/09/2022 14:21:00 12/10/19 23 12/09/2022 COMPR EHENS PHI METAB OLIC PANEL aspartate aminotransfe rase 32 U/L 15-37 Not Available [facility] (Lab) [address] [place], [address], 12/09/2022 14:21:00 12/10/19 23 12/09/2022 COMPR EHENS PHI METAB OLIC PANEL bilirubin, total 0.20 mg/dL 0.20-1 .30 Not Available [facility] (Lab) [address] [place], [address], 12/09/2022 14:21:00 12/10/19 23 12/09/2022 COMPR EHENS PHI METAB OLIC PANEL calcium 9.1 mg/dL 8.4-10 .2 Not Available [facility] (Lab) [address] [place], [address], 12/09/2022 14:21:00 12/10/19 23 12/09/2022 COMPR EHENS PHI METAB OLIC PANEL total protein 6.6 g/dL 6.3-8. 2 Not Available [facility] (Lab) [address] [place], [address], 12/09/2022 14:21:00 12/10/19 23 12/09/2022 COMPR EHENS PHI METAB OLIC PANEL albumin 3.7 g/dL 3.4-5. 0 Not Available [facility] (Lab) [address] [place], [address], 12/09/2022 14:21:00 12/10/19 23 12/09/2022 COMPR EHENS PHI METAB OLIC PANEL globulin 2.9 g/dL 2.6-4. 2 Not Available [facility] (Lab) [address] [place] [address], [address], 12/09/2022 14:21:00 12/10/19 23 12/09/2022 COMPR EHENS PHI METAB OLIC PANEL A/G ratio 1.3 ratio 1.0-2. 0 Not Available [facility] (Lab) [address] [place], [address], 12/09/2022 14:21:00 12/10/1912/09/2022 LIPID PANEL cholesterol 138 mg/dL 140-19 9 low NIH FLYNN NSUS RECOM MENDA TION FOR LEYLA STERO L: ADULT CHILD LOW RISK: <200 <170 BORDE RLINE : <200- 239 ----- HIGH RISK: >240 >200 Not Available [facility] (Lab) [address] [place], [address], 12/09/2022 14:01:37 12/10/19 23 12/09/2022 LIPID PANEL triglyceride s 67 mg/dL 0-150 NIH FLYNN NSUS REPOR T RECOM MENDA TION FOR TRIGL YCERI CHRISTIANA: ADULT CHILD LOW RISK: <150 ----- BODER LINE: 150-1 99 ----- HIGH RISK: >200 ----- Not Available [facility] (Lab) [address] [place], [address], 12/09/2022 14:01:37 12/10/19 23 12/09/2022 LIPID PANEL HDL cholesterol 54 mg/dL 40- Not Available [facility] (Lab) [address] [place] [address], [address], 12/09/2022 14:01:37 12/10/19 23 12/09/2022 LIPID PANEL LDL cholesterol, calculated 71 mg/dL 0-130 NIH FLYNN NSUS REPOR T RECOM MENDA TIONS FOR LDL: ADULT CHILD LOW RISK <130 <110 (OPTI MAL LDL) <100 ----- BORDE RLINE : 130-1 59 ----- HIGH RISK: >160 >130 A TRIGL YCERI DE RESUL T >400 INVAL IDATE S THE CALCU LATIO N FOR LDL FRACT IONAT ION - THE LDL RESUL T WILL NOT BE REPOR AKOSUA. Not Available [facility] (Lab) [address] [place], [address], 12/09/2022 14:01:37 12/10/19 23 12/09/2022 URIC ACID SERUM uric acid 4.8 mg/dL 2.5-6. 2 Not Available [facility] (Lab) [address] [place], [address], 12/09/2022 14:01:39 12/10/19 23 12/09/2022 HEMOG LOBIN A1C HA1C 6.0 % 4.0-6. 0 Diabe familia Scree ciaran Crite daniel: <5.7% Consi stent with absen ce of diabe familia 5.7-6 .4% Consi stent with incre ased risk for diabe familia (pred iabet es) >OR=6 .5% Consi stent with diabe familia REFER ENCE: Diabe familia Care 2016, 39(Maher ppl.1 ):s13 -s22 Not Available [facility] (Lab) [address] [place], [address], 12/09/2022 14:10:40 12/10/19 23 12/09/2022 VITAM IN B12 (CHERYL LEV ) vb12 231 pg/mL 239-93 1 low Not Available [facility] (Lab) [address] [place], [address], 12/09/2022 14:20:06 12/10/19 23 12/09/2022 FOLAT E, SERUM /PLAS MA folate 8.29 NG/mL 2.76-2 0.0 Not Available [facility] (Lab) [address] [place], [address], 12/09/2022 14:20:08 12/10/19 23 12/09/2022 TSH W/REF JARON FT4 TSH with reflex free T4 0.424 uIU/m L 0.465- 4.680 low Not Available [facility] (Lab) [address] [place], [address], 12/09/2022 18:56:02 12/10/19 23 12/09/2022 T4 FREE free T4 0.96 NG/dL 0.78-2 .19 Not Available [facility] (Lab) [address] [place], [address], 12/09/2022 20:29:47 12/10/19 23 12/09/2022 XR, cervi nick spine , 4 or 5 view [facility] [address] [facility] [place] [address] [phone] Patien t Name: LAUREN WILLIS Access ion #: [id number] Sex: F : 1989 8 Locati on: MOP Attend ing Physic jacky: ZENIA COLES Orderi ng Physic jacky: ZENIA COLES Exam Date: 023 10:59 AM Exam Name: XR C SPINE 4-5V Admitt ing Diagno sis(es ): RADIOL OGY REPORT - FINAL EXAM: XR C SPINE 4-5V HISTOR Y: CERVIC ALGIA COMPAR JAMES: None. TECHNI QUE: AP, Obliqu e, open-m outh, latera l, and swimme r's views. FINDIN GS: Examin ation of the cervic al spine demons trates no eviden ce of a fractu re, malali gnment , prever tebral mass, or destru ctive proces s. The bilate ral neural forami na appear patent . No radiop aque foreig n body. If clinic al sympto ms persis t, MRI examin ation could be consid ered. Page 1 of 2 [facility] [place] Patien t Name: LAUREN WILLIS Access ion #: [id number] Sex: F : 1989 8 Exam Date: 023 10:59 AM Exam Name: XR C SPINE 4-5V Admitt ing Diagno sis(es ): IMPRES RUFINO: Unrema rkable examin ation. Create d and electr onical ly signed by: Julian lee MD Signed Date: 4:10 PM (CT) Dictat ed by: Julian lee MD DD: 4:10 PM (CT) DT: 4:10 PM (CT) Page 2 of 2 [email or web address] [facility] (Imaging) [address] [place], [address], 01/07/2023 11:06:47 08/08/19 25 08/08/2024 XR, hip + pelvi s, bilat eral, 3 or 4 view [facility] [address] [place] [address] [phone] Ahmet t Name: LAUREN WILLIS Access ion #: [id number] Sex: F : 1989 5 Locati on: RAD Attend ing Physic jakcy: ZENIA COLES Orderi Physic jacky: ZENIA COLES Exam Date: 025 2:57 PM Exam Name: XR HIP/PE LVIS BILAT 3-4V Admitt ing Diagno sis(es ): RADIOL OGY REPORT - FINAL EXAM: XR HIP/PE LVIS BILAT 3-4V HISTOR Y: pain lt hip34- year-o ld female with bilate ral hip pain, histor y of IUD and Caesar arun sectio n surger y. COMPAR JAMES: CT scan of the pelvis dated 2020. TECHNI QUE: AP and frog-l eg latera l views of the bilate ral hips and AP view of the pelvis were perfor med. FINDIN GS: No acute fractu re is identi fied about the pelvis or hips. No signif icant hip joint space narrow ing bilate rally. There is a left os acetab ulum. Intrau terine device is identi fied in the centra l pelvis . Page 1 of 2 [facility] Patien t Name: LAUREN WILLIS R Access ion #: [id number] Sex: F : 1989 5 Exam Date: 2:57 PM Exam Name: XR HIP/PE LVIS BILAT 3-4V Admitt ing Diagno sis(es ): IMPRES RUFINO: No fractu re or signif icant degene rative change s of the bilate ral hips. Left hip os acetab rahel is stable since CT scan dated 2020. Create d and electr onical ly signed by: Carlos Alberto way MD Signed Date: 4:31 PM (CT) Dictat ed by: Carlos Alberto way MD DD: 4:31 PM (CT) DT: 4:31 PM (CT) Page 2 of [address] (Imaging) [address] [place], [address], 08/09/2024 15:53:23 08/08/19 25 08/08/2024 XR, lumba r spine [facility] [address] [place] [address] Patien t Name: LAUREN WILLIS R Access ion #: [id number] Sex: F : 1989 5 Locati on: RAD Attend ing Physic jacky: ZENIA COLES Orderi ng Physic jacky: ZENIA COLES Exam Date: 2:57 PM Exam Name: XR L SPINE 4V+ Admitt ing Diagno sis(es ): RADIOL OGY REPORT - FINAL EXAM: XR L SPINE 4V+ HISTOR Y: chroni c low back pain 34-yea r-old female with low back pain. COMPAR JAMES: CT scan of the abdome n and pelvis dated 2020. TECHNI QUE: Five views of the lumbar spine were perfor med. FINDIN GS: No fractu re or listhe sis of the lumbar spine. No signif icant degene rative disc diseas e. There is mild facet arthro jyothi. The obliqu e films do not demons trate spondy lolysi s. IUD is presen t in the mid pelvis . There is fecal retent ion in the colon, not fully imaged here. IMPRES RUFINO: Page 1 of 2 [facility] Patien t Name: LAUREN WILLIS Access ion #: [id number] Sex: F : 1989 5 Exam Date: 2:57 PM Exam Name: XR L SPINE 4V+ Admitt ing Diagno sis(es ): 1. Mild degene rative change s of the lumbar spine withou t eviden ce of fractu re. 2. Fecal retent ion in the colon sugges tive of consti pation . Create d and electr onical ly signed by: Carlos Alberto way MD Signed Date: 4:33 PM (CT) Dictat ed by: Carlos Alberto way MD DD: 4:33 PM (CT) DT: 4:33 PM (CT) Page 2 of 2 [email or web address] [facility] (Imaging) [address] [place], [address], 08/09/2024 15:53:23 08/08/19 25 08/08/2024 XR, wrist , 3 or more view [facility] [address] [place] [address] [phone] Patien t Name: MELODY LAUREN Lindsey Access ion #: [id number] Sex: F : 1989 5 Locati on: RAD Attend ing Physic jacky: ZENIA COLES Orderi ng Physic jacky: ZENIA COLES Exam Date: 2:57 PM Exam Name: XR WRIST BILAT 3V Admitt ing Diagno sis(es ): RADIOL OGY REPORT - FINAL EXAM: XR WRIST BILAT 3V HISTOR Y: bilate ral wrist pain 34-yea r-old female with bilate ral wrist pain chroni sav[place], no known injury . COMPAR JAMES: None availa ble. TECHNI QUE: Three views of the bilate ral wrists were perfor med. FINDIN GS: No acute fractu re or disloc ation are identi fied about either wrist. No signif icant degene rative change s are seen bilate rally. IMPRES RUFINO: Unrema rkable radiog raphs of the bilate ral wrists . Page 1 of 2 [facility] t Name: LAUREN WILLIS Access ion #: [id number] Sex: F : 1989 5 Exam Date: 2:57 PM Exam Name: XR WRIST BILAT 3V Admitt ing Diagno sis(es ): Create d and electr onical ly signed by: Carlos Alberto way MD Signed Date: 4:33 PM (CT) Dictat ed by: Carlos Alberto way MD DD: 4:33 PM (CT) DT: 4:33 PM (CT) Page 2 of 2 [email or web address] [facility] (Imaging) [address] [place], [address], 08/09/2024 15:53:22 Result Notes None recorded. Problems Name Problem SNOMED Code Status Onset Date Resolution Date Notes Provider Name and Address Organization Details Recorded Time Chronic neck pain 77873088720 07 Active 2021 Not Available [facility] 3 09:15:46 Chronic hepatitis C 666305400 Active 2021 Not Available [facility] 3 09:15:46 Anxiety disorder 114224847 Active 2021 Not Available [facility] 3 09:15:46 Gastroeso phageal reflux disease without esophagit is 424530526 Active 2021 Not Available [facility] 3 09:15:46 Adult health examinati on Active 2021 Not Available [facility] 3 09:15:47 Abscess of upper limb 564748098 Completed Not Available [facility] 3 09:15:47 Depressiv e disorder 20649481 Active 2021 Not Available [facility] 3 09:15:47 Obesity 458329271 Active 2021 Not Available [facility] 3 09:15:47 Nausea 443174636 Active 2021 Not Available [facility] 3 09:15:47 Subclinic al hyperthyr oidism 525239827 Active 2021 Not Available [facility] 3 09:15:47 Chronic headache disorder 123198602 Active 2021 Not Available [facility] 3 09:15:47 Migraine with aura 0198213 Active 2021 Not Available [facility] 3 09:15:47 Liver enzymes level above reference range 848341667 Active 2021 Not Available [facility] 3 09:15:47 58095455 Completed 201809/21/2018 Not Available [facility] 3 09:15:47 Foot callus 839281646 Active 2022 Yosi Coles MD [address], [place], [address] , [employer] 3 15:02:27 Vitamin B12 deficienc y (non anemic) 06815504 Active 2022 Yosi Coles MD [address], [place], [address] , [place] [facility] [employer] [facility] 3 11:08:08 Microscop ic hematuria 002706988 Active 2022 Yosi Coles MD [address], [place], [address] , [place] [facility] 3 11:09:14 Prediabet es 305499452 Active 2022 Yosi Coles MD [address], [place], [address] , [place] [facility] 3 11:09:54 Chronic insomnia 630419342 Active 2022 Yosi Coles MD [address], [place], [address] , [place] [facility] 3 11:12:05 Thoracic back pain 445411877 Active 2022 Yosi Coles MD [address], [place], [address] , [place] [facility] 3 12:49:59 Otalgia of left ear 9536887199 Active 2023 Yosi Coles MD [address], [place], [address] , [place] [facility] 4 14:30:45 Bilateral wrist pain 96991767242 601964 Active 2024 Yosi Coles MD [address], [place], [address] , [place] [facility] 5 15:25:58 Pain of bilateral hip joints 56967692857 750175 Active 2024 Yosi Coles MD [address], [place], [address] , [place] [facility] 5 15:26:44 Chronic low back pain 598204906 Active 2024 Yosi Coles MD [address], [place], [address] , [place] [facility] 5 15:28:15 Celluliti s of face 933772431 Active Yosi Coles MD [address] [address], [place], [address] , [facility] [employer] [facility] 5 16:07:12 Localized eruption of skin 924646321 Active Yosi Coles MD [address] [address], [place], [address] , [facility] 5 16:07:12 Problem Notes None recorded. Procedures Surgical History Date Name Laterality Status Provider Name and Address Organization Details Recorded Time delivery completed Not Available [facility] 08/26/2022 09:13:17 Imaging Results None recorded. Procedure Notes None recorded. Medical Equipment None Reported. Allergies Allergen ID Allergen Name Allergen Category Reaction Reaction Severity Criticality Documentation Date Start Date Code Code System Note Provider Name and Address Organization Details Recorded Time 45666 No known allergy (situatio n) Not available Not available Not available Not available 07/19/2024 47271 6003 SNOMED Yosi Coles MD [address], [address], [employer] [facility] [employer] 5 15:12:15 12865 bupropion Not available facial swelling moderate Not available 08/09/2024 41096 RxNorm Yosi Coles MD [address], [address], [employer] [facility] 5 16:00:06 Medications Name Sig Start Date Stop Date Status Note LastModified by Organization Details LastModified Time cyclobenzap rine 10 mg tablet TAKE 1 TABLET BY MOUTH EVERY 12 HOURS NEEDED FOR 30 DAYS active Not Available Not Available No t Available amoxicillin 500 mg capsule TK 1 C PO Q 8 H FOR 7 DAYS 08/23 completed Not Available Not Available Not Available venlafaxine ER 37.5 mg capsule,ext ended release 24 hr TAKE 1 CAPSULE BY MOUTH EVERY DAY IN THE MORNING 12/08 completed Not Available Not Available Not Available prednisone 10 mg tablet TAKE 4 TABLETS DAY 1-3, 3 TABLETS 4-5, 2 TABLETS DAY 6 AND 1 TABLET DAY 7 active Not Available Not Available No t Available venlafaxine ER 75 mg capsule,ext ended release 24 hr TAKE 1 CAPSULE BY MOUTH EVERY DAY IN THE MORNING 2023 active Not Available Not Available Not Avai lable trazodone 50 mg tablet TAKE 1 TABLET BY MOUTH EVERY DAY AT BEDTIME FOR 30 DAYS 04/12 completed Not Available Not Available Not Available cetirizine 10 mg tablet TAKE 1 TABLET BY MOUTH DAILY X7 DAYS active Not Available Not Available No t Available ibuprofen 800 mg tablet TAKE 1 TABLET BY MOUTH EVERY 8 HOURS NEEDED FOR PAIN active Not Available Not Available No t Available valacyclovi r 1 gram tablet TAKE 2 TABLETS BY MOUTH EVERY 12 HOURS FOR 1 DAY active Not Available Not Available No t Available sumatriptan 100 mg tablet TAKE 1 TABLET BY MOUTH NEEDED DIRECTED active Not Available Not Available No t Available hydrocodone 5 mg-acetamin ophen 325 mg tablet TAKE 1 TABLET BY MOUTH EVERY 6 HOURS NEEDED FOR PAIN active Not Available Not Available No t Available promethazin e 6.25 mg/5 mL oral syrup TK 10 ML PO TID PRF CONGESTIO N 08/23 completed Not Available Not Available Not Available prednisone 20 mg tablet 20 mg by oral route. 07/26 completed Not Available Not Available Not Available phentermine 15 mg capsule TAKE 1 CAPSULE BY MOUTH EVERY DAY IN THE MORNING active Not Available Not Available No t Available Wellbutrin SR 150 mg tablet, 12 hr sustained-r elease 0 mg by oral route. active Not Available Not Available No t Available cyanocobala min (vit B-12) 1,[address] 1 TABLET EVERY DAY BY SUBLINGUA L ROUTE DIRECTED. active Not Available Not Available No t Available penicillin V potassium 500 mg tablet TK 1 T PO Q 6 H FOR 7 DAYS 08/23 completed Not Available Not Available Not Available topiramate 25 mg tablet TAKE 1 TABLET BY MOUTH TWICE A DAY DIRECTED 09/18 completed Not Available Not Available Not Available triamcinolo ne acetonide 0.5 % topical ointment APPLY TO AFFECTED AREA TWICE DAILY.DO NOT APPLY TO FACE/HAIR active Not Available Not Available No t Available phentermine 37.5 mg tablet Take 1 tablet every day by oral route. 08/20 completed Not Available Not Available Not Available tramadol 50 mg tablet Take 1 tablet every 6 hours by oral route as needed. active Not Available Not Available No t Available amoxicillin 500 mg tablet TAKE 2 CAPSULES BY MOUTH NOW, THEN 1 CAPSULE 3 TIMES A DAY UNTIL GONE * NOT IN STATE MEDICAID* active Not Available Not Available No t Available oxycodone-a cetaminophe n 5 mg-325 mg tablet TK 1 TO 2 TS PO Q 4 TO 6 H PRN P 10/11 completed Not Available Not Available Not Available famotidine 20 mg tablet TAKE 1 TABLET BY MOUTH EVERY 12 HOURS DIRECTED active Not Available Not Available No t Available magnesium oxide 400 mg (241.3 mg magnesium) tablet Take 1 tablet twice a day by oral route. active Not Available Not Available No t Available trazodone 100 mg tablet TAKE 1 TABLET BY MOUTH EVERY DAY AT BEDTIME FOR 30 DAYS active Not Available Not Available No t Available lithium carbonate 300 mg capsule TAKE 1 CAPSULE BY MOUTH THREE TIMES A DAY active Not Available Not Available No t Available diphenhydra mine 25 mg capsule 25 mg by oral route. 07/26 completed Not Available Not Available Not Available cyanocobala min (vit B-12) 1,000 mcg/mL injection solution Inject 1 mL every week by intramusc ular route for 1 day. 2023 active Not Available Not Available Not Avai lable trazodone 150 mg tablet TAKE 1 TABLET BY MOUTH EVERY DAY AT BEDTIME FOR 30 DAYS 2024 active Not Available Not Available Not Avai lable buspirone 10 mg tablet TAKE 1 TABLET BY MOUTH EVERY 12 HOURS NEEDED FOR 30 DAYS active Not Available Not Available No t Available butalbital- aspirin-caf feine 50 mg-325 mg-40 mg capsule Take 1 capsule every 4 hours by oral route as needed. active Not Available Not Available No t Available diclofenac sodium 75 mg tablet,joseph yed release Take 1 tablet every 12 hours by oral route as needed for 30 days. active Not Available Not Available No t Available hydroxyzine HCl 25 mg tablet TAKE 1 TABLET BY MOUTH EVERY 8 HOURS NEEDED FOR 30 DAYS 2024 active Not Available Not Available Not Avai lable cyanocobala min (vit B-12) 1,000 mcg sublingual tablet DISSOLVE 1 TABLET UNDER TONGUE DAILY DIRECTED active Not Available Not Available No t Available lorazepam 1 mg tablet TAKE 1 TABLET BY MOUTH 3 TIMES A DAY NEEDED active Not Available Not Available No t Available ibuprofen 600 mg tablet TK 1 T PO Q 6 H TAT 08/23 completed Not Available Not Available Not Available methylpredn isolone 4 mg tablets in a dose pack TAKE 6 TABLETS ON DAY 1 DIRECTED ON PACKAGE AND DECREASE BY 1 TAB EACH DAY FOR A TOTAL OF 6 DAYS active Not Available Not Available No t Available propranolol 20 mg tablet TAKE 1 TABLET BY MOUTH TWICE A DAY active Not Available Not Available No t Available ondansetron 4 mg disintegrat ing tablet PLACE 1 TABLET UNDER THE TONGUE EVERY 6-8 HOURS ROUTE NEEDED FOR 10 DAYS. 12/15 completed Not Available Not Available Not Available metformin ER 500 mg tablet,exte nded release 24 hr Take 1 tablet twice a day by oral route after meals for 90 days. active Not Available Not Available No t Available sertraline 50 mg tablet TAKE 1 TABLET BY MOUTH EVERY DAY IN THE MORNING active Not Available Not Available No t Available doxycycline hyclate 100 mg tablet TAKE 1 TABLET BY MOUTH TWICE A DAY X10 DAYS active Not Available Not Available No t Available amoxicillin 875 mg-potassiu m clavulanate 125 mg tablet TAKE 1 TABLET BY MOUTH EVERY 12 HOURS FOR 10 DAYS active Not Available Not Available No t Available amoxicillin 500 mg-potassiu m clavulanate 125 mg tablet TK 1 T PO Q 12 H TAT 08/23 completed Not Available Not Available Not Available neomycin-po lymyxin-hyd rocort 3.5 mg-10,000 unit/mL-1 % ear drops,susp INSTILL 3 DROPS AFFECTED EAR(S) 3 TIMES A DAY active Not Available Not Available No t Available aripiprazol e 10 mg tablet TAKE 1 TABLET BY MOUTH EVERY DAY active Not Available Not Available No t Available cyclobenzap rine 5 mg tablet Take 1 tablet 3 times a day by oral route as needed. active Not Available Not Available No t Available Zovirax 5 % topical cream ENOCH TOPICALLY FID 08/23 completed Not Available Not Available Not Available aripiprazol e 5 mg tablet TAKE 1 TABLET BY MOUTH EVERY DAY active Not Available Not Available No t Available bupropion HCl XL 150 mg 24 hr tablet, extended release TAKE 1 TABLET BY MOUTH EVERY DAY DIRECTED active Not Available Not Available No t Available topiramate 50 mg tablet TAKE 1 TABLET BY MOUTH TWICE A DAY WITH MEALS active Not Available Not Available No t Available aripiprazol e 2 mg tablet TAKE 1 TABLET BY MOUTH EVERY DAY active Not Available Not Available No t Available quetiapine 50 mg tablet TAKE 1-2 TABLETS BY MOUTH AT BEDTIME NEEDED FOR SLEEP active Not Available Not Available No t Available 28 mg iron-800 mcg tablet Take 1 tablet every day by oral route. active Not Available Not Available No t Available Trulicity 1.5 mg/0.5 mL subcutaneou s pen injector INJECT THE CONTENTS OF 1 PEN UNDER THE SKIN ONCE WEEKLY 07/14 completed Not Available Not Available Not Available Trulicity 0.75 mg/0.5 mL subcutaneou s pen injector INJECT 0.75MG UNDER THE SKIN ONCE WEEKLY DIRECTED FOR 30 DAYS active Not Available Not Available No t Available Nurtec ODT 75 mg disintegrat ing tablet Take by oral route for 8 days. 2022 active Not Available Not Available Not Avai lable ID NOW COVID-19 Test Kit TEST DIRECTED 08/20 completed Not Available Not Available Not Available Wegovy 0.25 mg/0.5 mL subcutaneou s pen injector Inject 0.25 mg every week by subcutane ous route as directed. 07/14 completed Not Available Not Available Not Available Vitals Date Recorded Body height Body mass index (BMI) Body weight Body temperature Heart rate Respiratory rate Oxygen saturation Oxygen saturation in Arterial blood by Pulse oximetry Systolic blood pressure Diastolic blood pressure Provider Name and Address Organization Details Last Updated DateTime 4 165.1 cm 36 kg/m2 03433.3 g 98.1 [degF] 76 /min 16 /min 99 % 99 % 118 mm[Hg] 68 mm[Hg] Boom Evans [facility] [employer] 4 14:23:34 Date Recorded Body height Body mass index (BMI) Body weight Body temperature Oxygen saturation Oxygen saturation in Arterial blood by Pulse oximetry Heart rate Systolic blood pressure Diastolic blood pressure Provider Name and Address Organization Details Last Updated DateTime 5 165.1 cm 35.1 kg/m2 00947.3 4 g 97 [degF] 97 % 97 % 91 /min 110 mm[Hg] 70 mm[Hg] Eda Harris RN [facility] [employer] 5 15:16:25 Date Recorded Oxygen saturation Oxygen saturation in Arterial blood by Pulse oximetry Provider Name and Address Organization Details Last Updated DateTime 08/09/2024 96 % 96 % Yosi Coles MD [address], [facility] [address], [place], [address], [facility] [employer] [facility] 08/09/2024 15:53:20 Date Recorded Body height Body mass index (BMI) Body weight Body temperature Heart rate Systolic blood pressure Diastolic blood pressure Provider Name and Address Organization Details Last Updated DateTime 5 165.1 cm 35.6 kg/m2 97290.1 2 g 97.4 [degF] 85 /min 120 mm[Hg] 80 mm[Hg] Eda Harris RN [facility] [employer] [facility] 5 15:51:09 Date Recorded Body height Body mass index (BMI) Body weight Body temperature Heart rate Respiratory rate Oxygen saturation Oxygen saturation in Arterial blood by Pulse oximetry Systolic blood pressure Diastolic blood pressure Provider Name and Address Organization Details Last Updated DateTime 3 165.1 cm 40.1 kg/m2 425061. 11 g 97.9 [degF] 80 /min 20 /min 96 % 96 % 110 mm[Hg] 70 mm[Hg] Boom [facility] [employer] [facility] 3 10:53:32 Date Recorded Body height Body mass index (BMI) Body weight Body temperature Heart rate Respiratory rate Oxygen saturation Oxygen saturation in Arterial blood by Pulse oximetry Systolic blood pressure Diastolic blood pressure Provider Name and Address Organization Details Last Updated DateTime 3 165.1 cm 35.6 kg/m2 14186.1 2 g 97.1 [degF] 76 /min 16 /min 98 % 98 % 112 mm[Hg] 66 mm[Hg] Boom [facility] [employer] [facility] 3 12:43:32 Social History Question Answer Notes LastModified by Organizat ion Details LastModified Time Tobacco Smoking Status Never Smoker Not Available [employer] 08/26/2022 09:12:56 Do You Have An Advance Directive? No [id number] Information not available 08/26/2022 Do You Wear A Helmet When Biking? No MIGRATION.93731 02565 Information not available 08/26/2022 What Is Your Level Of Caffeine Consumption? Moderate 1/2 Gallon Of Tea On Worst Day. Information not available 07/19/2024 In The 14 Days Before Symptom Onset, Have You Had Close Contact With A Laboratory-confir med COVID-19 While That Case Was Ill? No MIGRATION.[id number] Information not available 08/26/2022 In The 14 Days Before Symptom Onset, Have You Had Close Contact With A Person Who Is Under Investigation For COVID-19 While That Person Was Ill? No MIGRATION.[id number] Information not available 08/26/2022 What Type Of Diet Are You Following? REGULAR MIGRATION.09505 02930 Information not available 08/26/2022 Have There Been Any Changes To Your Family Or Social Situation? No MIGRATION.03655 [id number] Information not available 08/26/2022 Are There Any Guns Present In Your Home? No MIGRATION.89192 34143 Information not available 08/26/2022 Do You Use Insect Repellent Routinely? No MIGRATION.92394 [id number] Information not available 08/26/2022 Where Do You Live? Apartment MIGRATION.43140 40654 Information not available 08/26/2022 Do You Have A Medical Power Of [place]? No MIGRATION.73288 25179 Information not available 08/26/2022 What Was The Date Of Your Most Recent Tobacco Screening? 12/24/2021 MIGRATION.77802 [id number] Information not available 08/26/2022 Do You Have Any Pets? No MIGRATION.22884 69125 Information not available 08/26/2022 What Is Your Relationship Status? Single MIGRATION.84777 74807 Information not available 08/26/2022 Do You Use Your Seat Belt Or Car Seat Routinely? Yes MIGRATION.83851 89755 Information not available 08/26/2022 Do You Have Smoke And Carbon Monoxide Detectors In Your Home? Yes MIGRATION.60194 97712 Information not available 08/26/2022 Are You Passively Exposed To Smoke? No MIGRATION.77999 71192 Information not available 08/26/2022 Are There Any Smokers In Your House? No MIGRATION.31851 76495 Information not available 08/26/2022 Do You Participate In Social Media? No MIGRATION.32035 38827 Information not available 08/26/2022 Do You Use Sunscreen Routinely? No MIGRATION.87189 05696 Information not available 08/26/2022 Has Tobacco Cessation Counseling Been Provided? No MIGRATION.31330 91580 Information not available 08/26/2022 Have You Recently Traveled Abroad? No MIGRATION.90785 70596 Information not available 08/26/2022 Are You Currently In School? No MIGRATION.90251 99642 Information not available 08/26/2022 Do You Have Any Dietary Restrictions? No MIGRATION.83350 05726 Information not available 08/26/2022 Sex: Female Functional Status Question Answer Note LastModified by Organizat [employer] Details LastModified Time Do you use any illicit or recreational drugs? No MIGRATION.[id number] [id number] Information not available 08/26/2022 Do you or have you ever used any other forms of tobacco or nicotine? No MIGRATION.[id number] 026 Information not available 08/26/2022 What is your level of alcohol consumption? 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 None MIGRATION.[id number] 026 Information not available 08/26/2022 Mental Status Question Answer Note LastModified by Organizat [employer] Details LastModified Time Do you feel stressed (tense, restless, nervous, or anxious, or unable to sleep at night)? [id number] MIGRATION.[id number] Information not available 08/26/2022 Family History Relationship Description Onset Age of this Age Resolved Age Notes LastModified by Organization Details LastModified Time Maternal Grandmother Diabetes mellitus MIGRATION.[id number] Not available 08/26/2022 09:13:18 Maternal Grandmother Hypertensive disorder MIGRATION.586 [id number] Not available 08/26/2022 09:13:18 Maternal Grandmother Dialysis care MIGRATION.018 [id number] Not available 08/26/2022 09:13:18 Mother Diabetes mellitus MIGRATION.[id number] Not available 08/26/2022 09:13:18 Mother Hypertensive disorder MIGRATION.524 [id number] Not available 08/26/2022 09:13:18 Medical History Condition Response BLINDNESS N RHEUMATIC FEVER N KIDNEY STONES N BLADDER PROBLEMS N MRSA N OTHER # 1 N POLIO N LUNG DISEASE/DISORDER N RADIATION / CHEMOTHERAPY N COPD N Other # 2 N BLOOD DISEASES N SURGERY N EAR OR HEARING PROBLEMS N MUMPS N BOWEL PROBLEMS N FEMALE PROBLEMS / INFECTIONS N DEPRESSION (INCLUDING POST ) N STROKE/TIA N THYROID DISEASE N ULCERS N BENIGN PROSTATIC HYPERPLASIA N MEASLES N CERVICALGIA N TB SKIN TEST N MYOCARDIAL INFARCTION N PARAPELGIA N OBESITY N GERD/NAUSEA N ANEURYSM N URINARY/BLADDER/KIDNEY PROBLEMS N CORONARY ARTERY DISEASE (CAD) N MENIERE'S DISEASE N ADDICTION CONCERNS N ENDOMETRIOSIS N USE OF BLOOD THINNERS N SKIN PROBLEMS N EMPHYSEMA N GASTROINTESTINAL DISORDER N MUSCLE,JOINT OR BONE PROBLEMS N GASTROINTESTINAL BLEEDING N BLOOD CLOTS N ASTHMA N CATARACTS N ERECTILE DYSFUNCTION N GI PROBLEMS N CHF N Low Testosterone N NEUROPATHY N INFERTILITY N AIDS/HIV N FRACTURES N CHEMOTHERAPY / RADIATION N VISION/EYE PROBLEMS N LIVER DISEASE N MALE HYPOGONADISM N HYPERTENSION N ANXIETY DISORDER N BLOOD TRANSFUSION N ANEMIA/BLOOD DISORDER N CHRONIC EAR INFECTIONS N BRONCHITIS N TUBERCULOSIS N GLAUCOMA N FOOT PROBLEM N DIVERTICULITIS N CHICKENPOX N SLEEP APNEA N ALLERGIES/HAYFEVER N INFECTIOUS DISEASE N HEART ARRHYTHMIA N PROSTATE N INSOMNIA N HIGH CHOLESTEROL / HYPERLIPIDEMIA N HYPERTHYROIDISM N EYE PROBLEMS N EATING DISORDER N NEUROLOGICAL PROBLEMS N EDEMA N CHRONIC PAIN SYNDROME N HYPOTHYROIDISM N CAROTID BLOCKAGE N CONSTIPATION N BACK / NECK PROBLEMS N HAVE YOU BEEN HOSPITALIZED OR SEEN IN [facility] ER IN THE PAST YEAR ? N ATHEROSCLEROSIS N BREAST PROBLEMS N DIALYSIS N ECZEMA N FIBROMYALGIA N OSTEOPOROSIS N ARTHRITIS N NO SIGNIFICANT PAST MEDICAL HISTORY N APPENDICITIS N DIABETES, TYPE N BAD TEETH N HEARTBURN / REFLUX Y ADD/ADHD N AFIB N AUTISM SPECTRUM DISORDER (ASD) N HEPATITIS / LIVER DISEASE N PULMONARY DISEASE N GOUT N SLEEP DISORDER N ALZHEIMER'S DISEASE N PAIN N HERPES N DEMENTIA N HEADACHES/MIGRAINES Y SEIZURES/EPILEPSY N VASCULAR DISEASE N PACEMAKER N DIZZINESS N HEART DISEASE/HEART PROBLEMS N KIDNEY DISEASE N DEVELOPMENTAL OR BEHAVIORAL DISORDERS N MULTIPLE SCLEROSIS N SCARLET FEVER N MENTAL DISORDER/ILLNESS N CARDIAC ARRHYTHMIA N CANCER: SPECIFY N PNEUMONIA N ATRIAL FIBRILLATION N Gall Stones N PULMONARY EMBOLISM N AUTOIMMUNE DISEASE N Gynecological History Statement/Question Response Flow Light Date of LMP 08/19/2021 Sexually Active? Y Weight gain Y Dislike of Light during Menstrual Headac he N Menses Monthly N STIs/STDs N Breast Problems none Discharge none Obstetrics History GPAL:G 2 P 2 0 0 2 Type Value Multiple Births 2 Full Term 2 Induced 0 Spontaneous 0 Premature 0 Living 2 Ectopics 0 Total 2 Immunizations Vaccine Type Date Status Note Provider Nam e and Address Organization Details Recorded Time Influenza, split virus, trivalent, PF 04/07/2024 completed Yosi Coles MD [address] [place] [address], [facility] [address], [place], [address], [facility] 07/19/2024 15:12:26 Past Encounters Encounter ID Performer Location Encounter Start Date Encounter Closed Date Diagnosis/Indication Diagnosis SNOMED-CT Code Diagnosis ICD10 Code Diagnosis Note [id number] Aram Jimenez MD [facility] [place] [address] [facility] [place] [address] 10/11/2020 00:00:00 10/12/2020 12:54:05 [id number] Yosi Coles MD [address] [address] 08/20/2021 00:00:00 08/20/2021 12:20:46 [id number] Yosi Coles MD [address] [address] 08/28/2021 00:00:00 08/28/2021 10:58:49 [id number] Yosi Coles MD [address] [address] 09/18/2021 00:00:00 09/18/2021 09:54:31 [id number] Yosi Coles MD [address] [address] 12/08/2021 00:00:00 12/08/2021 11:53:34 [id number] _ATHN_MIGR ATION_1 _ATHENA_M IGRATION_ DEFAULT_1 _1 , 12/24/2021 00:00:00 12/24/2021 15:39:33 [id number] Yosi Coles MD [address] [address] 12/08/2022 14:45:25 12/08/2022 15:15:49 Adult health examination 104787454 Z00.00 Chronic hepatitis C 1283 93830 B18.2 Chronic neck pain 427591 6173 107 M54.2 Obesity 587046393 E66.9 Migraine with aura 38679 06 G43.109 Depressive disorder 3548 9007 F32.A Anxiety disorder F41.9 Gastroesop hageal reflux disease without esophagitis 607609189 K21.9 Foot callus 449692040 L8 4 [id number] Yosi Coles MD [address] [address] 01/07/2023 10:25:57 01/07/2023 11:46:48 Chronic hepatitis C 144149533 B18.2 Chronic neck pain 150322 7053 107 M54.2 Obesity 927525921 E66.9 Migraine with aura 29919 06 G43.109 Depressive disorder 3548 9007 F32.A Anxiety disorder F41.9 Gastroesop hageal reflux disease without esophagitis 295464817 K21.9 Vitamin B1 2 deficiency (non anemic) 32341321 E53.8 Microscopic hematuria 19 0059574 R31.29 Prediabetes 273265024 R7 3.03 Chronic insomnia 4473497 04 F51.04 [id number] Yosi Coles MD [address] [address] 03/10/2023 12:33:56 03/10/2023 13:08:18 Chronic neck pain 9928672084 107 M54.2 Obesity 533612721 E66.9 Depressive disorder 3548 9007 F32.A Anxiety disorder F41.9 Vitamin B1 2 deficiency (non anemic) 34508754 E53.8 Chronic insomnia 3778852 04 F51.04 Prediabetes 719087489 R7 3.03 Thoracic back pain 06528 8004 M54.6 [id number] Yosi Coles MD [address] [address] 07/14/2023 14:17:05 07/14/2023 14:49:55 Chronic neck pain 0106604037 107 M54.2 Obesity 380644713 E66.9 Depressive disorder 3548 9007 F32.A Anxiety disorder F41.9 Chronic insomnia 6080478 04 F51.04 Vitamin B1 2 deficiency (non anemic) 59781661 E53.8 Prediabetes 554241821 R7 3.03 Thoracic back pain 74733 8004 M54.6 Chronic hepatitis C 1283 88582 B18.2 Migraine with aura 37489 06 G43.109 Otalgia of left ear 1010 548640 H92.02 [id number] Yosi Coles MD [address] [address] 07/19/2024 15:07:29 07/19/2024 15:33:07 Depressive disorder 42715848 F32.A Anxiety disorder 06 F41.9 Chronic insomnia 3360800 04 F51.04 Chronic neck pain 840447 3610 107 M54.2 Obesity 060944179 E66.9 Vitamin B1 2 deficiency (non anemic) 79665718 E53.8 Prediabetes 537834466 R7 3.03 Chronic hepatitis C 1283 94985 B18.2 Migraine with aura 93787 06 G43.109 Bilateral wrist pain 002 0132122 0600784 M25.532 Pain of bi lateral hip joints 6982879955 0351524 M25.552 Chronic low back pain 27 0157171 M54.50 [id number] Yosi Coles MD [address] [address] 08/09/2024 15:43:22 08/09/2024 16:22:07 Depressive disorder 80338480 F32.A Anxiety disorder 06 F41.9 Chronic insomnia 9190581 04 F51.04 Chronic neck pain 020012 5718 107 M54.2 Obesity 075345563 E66.9 Vitamin B1 2 deficiency (non anemic) 67841921 E53.8 Prediabetes 122129461 R7 3.03 Chronic hepatitis C 1283 53204 B18.2 Migraine with aura 61341 06 G43.109 Bilateral wrist pain 098 6418594 3619101 M25.532 Pain of bi lateral hip joints 3036698421 5625242 M25.552 Chronic Chronic low back pain 27 3892888 M54.50 [id number] Velma Wagner, [facility] [address] [address] 08/30/2024 16:06:06 08/30/2024 18:52:42 [id number] Velma Wagner, PMHNP [facility] [address] [place] [address] 10/18/2024 15:50:04 10/18/2024 16:28:27 [id number] Velma Cedillojay jayprem, HNP [facility] [address] [place] [address] 11/16/2024 15:53:25 11/16/2024 16:36:24 Health Concerns Section Related Observation LastModified by Organization Detai ls LastModified Time None Recorded Concern Status LastModified by Organization Details LastModified Time None Recorded Advance Directives Directive N: Payers Encounter Date Sequence Insurance Name Policy Number Policy Turcios Covered Member ID Turcios Member ID Guarantor Name 01/07/2023 1 [facility] ON OR AFTER 12/26/20 (MEDICAID REPLACEMENT - HMO) Mariely Willis [id number] Mariely Willis 03/10/2023 1 [facility] ON OR AFTER 12/26/20 (MEDICAID REPLACEMENT - HMO) Mariely Willis [id number] Mariely Willis 07/14/2023 1 [facility] ON OR AFTER 12/26/20 (MEDICAID REPLACEMENT - HMO) Mariely Willis [id number] Mariely Willis 07/19/2024 1 [facility] ON OR AFTER 12/26/20 (MEDICAID REPLACEMENT - HMO) Mariely Willis [id number] Mariely Willis 08/09/2024 1 [facility] ON OR AFTER 12/26/20 (MEDICAID REPLACEMENT - HMO) Mariely Willis [id number] Mariely Willis Notes Date Note Type Note Provider Name and Address Organization Details Recorded Time 01/07/2023 text/html Pt is here for f /u on her annual labs. Denies any problem with meds. Denies any new concern. Pt wants to try wt loss med for her wt concerns. Pt has tried otc supplements in the past.Pt says she has chronic Hep C for last 2-3 yrs, but pt has not seen anyone for this in the past.C/o chronic migraine headaches with nausea for last many yrs. Initially, it was milder and less frequent; but for last few yrs, its getting more severe and almost happens daily. Pt has never had any testing done for this and not seen any neuro in the past. Last eye exam few yrs ago. Nausea, photophobia, phonophobia ++.C/o chronic neck area pain and tightness for last few yrs. Denies any recent fall/trauma/injury . No workman's comp. No other area pain.C/o depression, anxiety for last few yrs, but for last several months; she is not able to handle it and wants to be on med for it. Pt was on Xanax in the past for it. Denies any SI/HI. Pt has not seen any counsellor/psych in the past for this. Yosi Coles MD [address] [facility], [facility] [address], [place], [address], [facility] [employer] 01/07/2023 11:45:54 03/10/2023 text/html Pt is here for f /u on her meds and wt loss. Denies any problem with meds. Denies any new concern. Pt decided not to go with Phentermine and her insurance declined for Wegovy. Pt has tried otc supplements in the past. Pt wants to try Trulicity. C/o Lt sided middle back area pain for last few weeks. Denies any recent fall/trauma/injury . Pt has not seen Neuro, Uro, GI yet.Pt says she has chronic Hep C for last 2-3 yrs, but pt has not seen anyone for this in the past.C/o chronic migraine headaches with nausea for last many yrs. Initially, it was milder and less frequent; but for last few yrs, its getting more severe and almost happens daily. Pt has never had any testing done for this and not seen any neuro in the past. Last eye exam few yrs ago. Nausea, photophobia, phonophobia ++.C/o chronic neck area pain and tightness for last few yrs. Denies any recent fall/trauma/injury . No workman's comp. No other area pain.C/o depression, anxiety for last few yrs, but for last several months; she is not able to handle it and wants to be on med for it. Pt was on Xanax in the past for it. Denies any SI/HI. Pt has not seen any counsellor/psych in the past for this. Yosi Coles MD [address] [facility], [facility] [address], [place], [address], [employer] [facility] [employer] 03/10/2023 13:06:07 07/14/2023 text/html Pt is here for f /u on her meds and chronic conditions. Denies any problem with meds. Denies any new concern. Pt was last seen in 03/20 and no visit since than. C/o Lt sided middle back area pain for last few weeks. Denies any recent fall/trauma/injury . Pt has not seen Neuro, Uro, GI yet.Pt says she has chronic Hep C for last 2-3 yrs, but pt has not seen anyone for this in the past.C/o chronic migraine headaches with nausea for last many yrs. Initially, it was milder and less frequent; but for last few yrs, its getting more severe and almost happens daily. Pt has never had any testing done for this and not seen any neuro in the past. Last eye exam few yrs ago. Nausea, photophobia, phonophobia ++. Yosi Coles MD [address], [facility] [address], [place], [address], [employer] [facility] [employer] 07/14/2023 14:47:38 07/19/2024 text/html ACV: C/o b/l wrist, hips and lower back pain for last 5-6 months. Denies any recent fall/trauma/injury /workman's comp. Denies any incontinence. C/o her anxiety and mood is not controlled. She wants to change Effexor to something else due to wt gain concern. Pt was last seen in 07/21 and no visit since than. Pt has not seen Neuro, Uro, GI yet. Yosi Coles MD [address] [facility], [facility] [address], [place], [address], [employer] [facility] [employer] 07/19/2024 15:39:43 08/09/2024 text/html Pt is here for f /u on her x-rays and meds. Feeling overall better than last visit. Pt got facial and neck rash and itching after starting Bupropion and she stopped it, and it all resolved. Pt tried taking after few days and got the rash again. So she has stopped it since than. Pt will be seeing Psych in 09/19. C/o b/l wrist, hips and lower back pain for last 5-6 months. Denies any recent fall/trauma/injury /workman's comp. Denies any incontinence. C/o her anxiety and mood is not controlled. She wants to change Effexor to something else due to wt gain concern. Pt was last seen in 07/21 and no visit since . Pt has not seen Neuro, Uro, GI yet. Yosi Coles MD [address] [place] [address], [place] [address], [place], [address], [place] - [facility] [employer] 08/09/2024 16:07:44 OBGyn Episode No OBEpisode recorded.
--- OUTSIDE RECORDS SUMMARY | 2024-11-23 18:22 | XMS_ITS | Clinical Summary ---
Author Organization [facility] Address [address] [place] [address] Care Team Providers Care Machine Castings Plasterer Name Role Phone Unavailable Primary Care Provider Unavailabl e Source Comments [facility],non-owned Affiliates and Associated Physician Practices is amultiple site organization consisting of ambulatory clinics and hospital sitesin [place], [place], [place] and [place]. This disclosure is being madepursuant to the Care Everywhere program and may not contain all information available regarding this patient. 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 Gender Identity Not on file Sexual Orientation Not on file Last Filed Vital Signs Vital Sign Reading Time Taken Comments Blood Pressure 130/94 02/11/2013 2:00 AM CDT Pulse 79 02/11/2013 2:00 AM CDT Temperature 36.8 C (98.3 F) 02/10/2013 8:48 PM CDT Respiratory Rate 17 02/11/2013 2:00 AM CDT Oxygen Saturation 100% 02/11/2013 2:00 AM CDT Inhaled Oxygen Concentration - - Weight - - Height - - Body Mass Index - - Plan of Treatment Health Maintenance Due Date Last Done Comments HIV SCREENING 2005 HEPATITIS C SCREENING 01/08/2008 DTAP/TDAP/TD VACCINES (1 - Tdap) 2009 HEPATITIS B VACCINE (1 of 3 - 19+ 3-dose series) 2009 COVID-19 VACCINE (2023-2 5 season) 2024 DEPRESSION SCREENING 06/28/2024 INFLUENZA VACCINE (Season Ended) 2025 ZOSTER VACCINE (1 of 2) 01/13/2040 HIB VACCINE Aged Out No longer eligi ble based on patient's age to complete this topic HPV VACCINE Aged Out No longer eligi ble based on patient's age to complete this topic MENINGOCOCCAL (Group B) VACC INE SHARED DECISION-MAKING Aged Out No longer eligibl e based on patient's age to complete this topic MENINGOCOCCAL GROUPS A/C/Y/W VACCINE Aged Out No longer eligible b ased on patient's age to complete this topic PNEUMOCOCCAL VACCINE Aged Out No long er eligible based on patient's age to complete this topic Insurance [facility]
--- OUTSIDE RECORDS SUMMARY | 2024-11-23 18:23 | XMS_ITS | Patient Health Record ---
Author Organization [facility] Address [address] [place] [address] Support Name Relationship Address Phone Ernestina Willis Emergency Contact [address] [id number] [phone] Mariely Willis Guarantor Unknown [phone] Reason For Referral No Information Plan Of Treatment No Information
[2024-11-23 18:29] VITALS: BP 125/48; PULSE 80; RESP 20; TEMP 35.7; O2SAT 99
[2024-11-23 20:26] VITALS: BP 121/77; PULSE 78; RESP 18; TEMP 36.7; O2SAT 97
--- OUTSIDE RECORDS SUMMARY | 2024-11-23 23:01 | XMS_ITS | Continuity of Care Document ---
Author Organization [facility] Address [address] [place] [address] [address] [place] [address] Phone Care Team Providers Care House Mover Helper Name Role Phone Boyd OD, Amrik Unavailable Unavailable Procedures Procedure Date Eye Exam, New Patient Refraction Advance Directives Directive Yes / No Effective Date File Name No Information Encounters Encounter Description Practice Location Reason(s) For Visit Diagnoses Date Provider Providers Copied on Encounter [facility], [address] [place] [address] [address], [place], [place], [id number], [place] tel:[phone] SEC [facility] No Information 5-200 7 Boyd OD Amrik. [address] [facility] [address] [address] [place] , [address], [place], [address], [place]. tel:[phone] Family History Family Member Type Diagnosis Age At Onset No Information Payers Payer name Insurance type Covered constitution party ID Authoriza tion(s) Medicaid [facility] [id number] Social History Type Description Quantity Date Captured [...]
--- OUTSIDE RECORDS SUMMARY | 2024-11-23 23:01 | XMS_ITS | Clinical Summary ---
Author Organization [facility] Address [address] [place] [address] Care Team Providers Care Engraver Pantograph Name Role Phone Tono Reyes MD Unavailable [phone] Yosi Coles MD Primary Care Provider [phone] Allergies No known active allergies Medications HYDROcodone-acet aminophen (NORCO) 5-325 mg per tabletIndication s:Pain Take 1 tablet by mouth every 6 (six) hours as needed for pain 10 tablet 08/26/2023 Active Active Problems Problem Noted Date Diagnosed Date Strep pharyngitis 08/26/2023 Hepatitis C 03/20/2019 Supervision of high-risk , unspecified trimester 03/13/2019 Overview (03/13/2019): [] Co-management vs. [] Full [facility] Care; Referring Provider: Tono Reyes [phone] [x] Dating Criteria: LMP 10/30/18; [place] 01/12/19 [...] [] MOC: [] Method of feeding: [] Deskidding Machine Operator: [] PP Depression Discussed: Social History [...] Comments Blood Pressure 164/87 08/26/2023 11:15 AM TRICHOLOGIST Pulse 84 08/26/2023 11:15 AM TRICHOLOGIST Temperature 36.5 C (97.7 F) 08/26/2023 8:57 AM TRICHOLOGIST Respiratory Rate 18 08/26/2023 11:15 AM TRICHOLOGIST Oxygen Saturation 97% 08/26/2023 11:15 AM TRICHOLOGIST Inhaled Oxygen Concentration - - Weight 95.3 kg (210 lb) 08/26/2023 8:57 AM TRICHOLOGIST Height 165.1 cm (5' 5) 08/26/2023 8:57 AM TRICHOLOGIST Body Mass Index 34.95 08/26/2023 8:57 AM TRICHOLOGIST Plan of Treatment Health Maintenance Due Date [...] Recently Relevant to Health Maintenance Care Teams Engraver Pantograph Relationship Specialty Start Date End Date Yosi Coles MD [address] [place] [address] [place] [address] PCP - General Family Medicine 08/26/23 Tono Reyes MD [address] [facility] [place] [address] Referring Physician Obstetrics and Gynecology 02/06/19
--- OUTSIDE RECORDS SUMMARY | 2024-11-23 23:02 | XMS_ITS | Referral Summary ---
Author Organization [facility] Address [address] [place] [address] Care Team Providers Care Tire Finisher Name Role Phone Tono Reyes MD Unavailable [phone] Yosi Coles MD Primary Care Provider [phone] Allergies No known active allergies Medications HYDROcodone-acet aminophen (NORCO) 5-325 mg per tabletIndication s:Pain Take 1 tablet by mouth every 6 (six) hours as needed for pain 10 tablet 08/26/2023 Active Active Problems Problem Noted Date Diagnosed Date Strep pharyngitis 08/26/2023 Hepatitis C 03/20/2019 Supervision of high-risk , unspecified trimester 03/13/2019 Overview (03/13/2019): [] Co-management vs. [] Full [facility] Care; Referring Provider: Tono Reyes [phone] [x] Dating Criteria: LMP 10/30/18; [place] 01/12/19 [...] [] MOC: [] Method of feeding: [] Money Market Clerk: [] PP Depression Discussed: Social History Tobacco [...] Comments Blood Pressure 164/87 08/26/2023 11:15 AM MACHINE STACKER Pulse 84 08/26/2023 11:15 AM MACHINE STACKER Temperature 36.5 C (97.7 F) 08/26/2023 8:57 AM MACHINE STACKER Respiratory Rate 18 08/26/2023 11:15 AM MACHINE STACKER Oxygen Saturation 97% 08/26/2023 11:15 AM MACHINE STACKER Inhaled Oxygen Concentration - - Weight 95.3 kg (210 lb) 08/26/2023 8:57 AM MACHINE STACKER Height 165.1 cm (5' 5) 08/26/2023 8:57 AM MACHINE STACKER Body Mass Index 34.95 08/26/2023 8:57 AM MACHINE STACKER Plan of Treatment Not on file Procedures [...] Recently Relevant to Health Maintenance Care Teams Tire Finisher Relationship Specialty Start Date End Date Yosi Coles MD [address] [facility] DEPT [place] [address] PCP - General Family Medicine 08/26/23 Tono Reyes MD [address] [place], [place] [address] Referring Physician Obstetrics and Gynecology 02/06/19
--- OUTSIDE RECORDS SUMMARY | 2024-11-23 23:02 | XMS_ITS | Clinical Summary ---
Author Organization [facility] Address [address] [facility] [place] [address] Care Team Providers Care Csm Consultant Name Role Phone Unavailable Primary Care Provider Unavailabl e Source Comments [facility],non-owned Affiliates and Associated Physician Practices is amultiple site organization consisting of ambulatory clinics and hospital sitesin [place], [place], [place] and [place]. This disclosure is being madepursuant to the Care Everywhere program and may not contain all information available regarding this patient. Last updated 18.[facility] [employer] Social History Tobacco Use Types Packs/Day Years Used Date Smoking Tobacco: Every Day Alcohol Use Standard Drinks/Week Comments No 0 (1 standard drink = 0.6 oz pur e alcohol) Comments Unknown Sex and Gender Information Value Date Recorded Sex Assigned at Not on file Legal Sex Female 6:45 PM NURSE GENERAL DUTY Gender Identity Not on file Sexual Orientation [...] patient's age to complete this topic Insurance [facility]
--- OUTSIDE RECORDS SUMMARY | 2024-11-23 23:03 | XMS_ITS | Patient Health Record ---
Author Organization [facility] Address [address] [place] [address] Support Name Relationship Address Phone Ernestina Willis Emergency Contact [address] [id number] [phone] Mariely Willis Guarantor Unknown [phone] Reason For Referral No Information Plan Of Treatment No Information
== END 2024-11-23 22:57 | disposition left against medical advice (07) ==
LOC: ANHED 22:59
PROVIDERS: PCP Family Medicine
DX: M54.2 Cervicalgia (principal)
CPT/HCPCS: 99199

== ENCOUNTER 2024-11-24 09:50 | Emergency (ER) | payer OTHER, SELFPAY ==
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
[2024-11-24 09:51] VITALS: BP 133/75; PULSE 81; RESP 16; TEMP 36.6; O2SAT 100
--- OUTSIDE RECORDS SUMMARY | 2024-11-24 10:04 | XMS_ITS | Clinical Summary ---
Author Organization [facility] Address [address] [facility] [place] [address] Care Team Providers Care Assembler Watch Train Name Role Phone Unavailable Primary Care Provider Unavailabl e Source Comments [facility],non-owned Affiliates and Associated Physician Practices is amultiple site organization consisting of ambulatory clinics and hospital sitesin [place], [place], [place] and [place]. This disclosure is being madepursuant to the Care Everywhere program and may not contain all information available regarding this patient. Last updated 18.[facility] [employer] Social History Tobacco Use Types Packs/Day Years Used Date Smoking Tobacco: Every Day Alcohol Use Standard Drinks/Week Comments No 0 (1 standard drink = 0.6 oz pur e alcohol) Comments Unknown Sex and Gender Information Value Date Recorded Sex Assigned at Not on file Legal Sex Female 6:45 PM DRIP MOLDER Gender Identity Not on file Sexual Orientation [...] patient's age to complete this topic Insurance [facility]
--- OUTSIDE RECORDS SUMMARY | 2024-11-24 10:04 | XMS_ITS | Clinical Summary ---
Author Organization [facility] Address [address] [place] [address] Care Team Providers Care Greaser Operator Name Role Phone Tono Reyes MD Unavailable [phone] Yosi Coles MD Primary Care Provider [phone] Allergies No known active allergies Medications HYDROcodone-acet aminophen (NORCO) 5-325 mg per tabletIndication s:Pain Take 1 tablet by mouth every 6 (six) hours as needed for pain 10 tablet 08/26/2023 Active Active Problems Problem Noted Date Diagnosed Date Strep pharyngitis 08/26/2023 Hepatitis C 03/20/2019 Supervision of high-risk , unspecified trimester 03/13/2019 Overview (03/13/2019): [] Co-management vs. [] Full [facility] Care; Referring Provider: Tono Reyes [phone] [x] Dating Criteria: LMP 10/30/18; [place] 01/12/19 [...] [] MOC: [] Method of feeding: [] Stewardesses Teacher: [] PP Depression Discussed: Social History Tobacco [...] Comments Blood Pressure 164/87 08/26/2023 11:15 AM GUEST SERVICES ASSOCIATE Pulse 84 08/26/2023 11:15 AM GUEST SERVICES ASSOCIATE Temperature 36.5 C (97.7 F) 08/26/2023 8:57 AM GUEST SERVICES ASSOCIATE Respiratory Rate 18 08/26/2023 11:15 AM GUEST SERVICES ASSOCIATE Oxygen Saturation 97% 08/26/2023 11:15 AM GUEST SERVICES ASSOCIATE Inhaled Oxygen Concentration - - Weight 95.3 kg (210 lb) 08/26/2023 8:57 AM GUEST SERVICES ASSOCIATE Height 165.1 cm (5' 5) 08/26/2023 8:57 AM GUEST SERVICES ASSOCIATE Body Mass Index 34.95 08/26/2023 8:57 AM GUEST SERVICES ASSOCIATE Plan of Treatment Health Maintenance Due Date [...] Recently Relevant to Health Maintenance Care Teams Greaser Operator Relationship Specialty Start Date End Date Yosi Coles MD [address] [place] [address] [place] [address] PCP - General Family Medicine 08/26/23 Tono Reyes MD [address] [facility] [place] [address] Referring Physician Obstetrics and Gynecology 02/06/19
--- OUTSIDE RECORDS SUMMARY | 2024-11-24 10:04 | XMS_ITS | CONTINUITY OF CARE DOCUMENT ---
Author Name [facility] Address Unknown Organization [facility] Address [address] [facility] [address] [place] [address] Phone [phone] Care Team Providers Care Fire Sprinkler Installer Name Role Phone David ROMAN, Lamont Unavailable [phone] TANA NOYOLA MD Unavailable [phone] INSURANCE PROVIDERS Payer name Policy type / Coverage type [place] red green party ID [facility]ALTHCARE AND FAMILY [facility] Medicaid 1 [id number]
--- OUTSIDE RECORDS SUMMARY | 2024-11-24 10:04 | XMS_ITS | Continuity of Care Document ---
Author Organization [facility] Address [address] [place] [address] [address] [place] [address] Phone Care Team Providers Care Mud Tank Operator Name Role Phone Boyd OD, Amrik Unavailable Unavailable Procedures Procedure Date Eye Exam, New Patient Refraction Advance Directives Directive Yes / No Effective Date File Name No Information Encounters Encounter Description Practice Location Reason(s) For Visit Diagnoses Date Provider Providers Copied on Encounter [facility], [address] [place] [address] [address], [place], [place], [id number], [place] tel:[phone] [facility] No Information 5-200 7 Boyd OD Amrik. [address] [place] , [address], [place], [address], [place]. tel:[phone] Family History Family Member Type Diagnosis Age At Onset No Information Payers Payer name Insurance type Covered constitution party ID Authoriza tion(s) Medicaid [facility] [id number] Social History Type Description Quantity Date Captured [...]
--- OUTSIDE RECORDS SUMMARY | 2024-11-24 10:04 | XMS_ITS | Referral Summary ---
Author Organization [facility] Address [address] [place] [address] Care Team Providers Care Outsole Skiver Name Role Phone Tono Reyes MD Unavailable [phone] Yosi Coles MD Primary Care Provider [...] Overview (03/13/2019): [] Co-management vs. [] Full [facility] Care; Referring Provider: Tono Reyes [phone] [x] Dating Criteria: LMP 10/30/18; [place] 01/12/19 [...] [] MOC: [] Method of feeding: [] Educational Advisor: [] PP Depression Discussed: Social History Tobacco [...] Comments Blood Pressure 164/87 08/26/2023 11:15 AM TOOLROOM CLERK Pulse 84 08/26/2023 11:15 AM TOOLROOM CLERK Temperature 36.5 C (97.7 F) 08/26/2023 8:57 AM TOOLROOM CLERK Respiratory Rate 18 08/26/2023 11:15 AM TOOLROOM CLERK Oxygen Saturation 97% 08/26/2023 11:15 AM TOOLROOM CLERK Inhaled Oxygen Concentration - - Weight 95.3 kg (210 lb) 08/26/2023 8:57 AM TOOLROOM CLERK Height 165.1 cm (5' 5) 08/26/2023 8:57 AM TOOLROOM CLERK Body Mass Index 34.95 08/26/2023 8:57 AM TOOLROOM CLERK Plan of Treatment Not on file Procedures [...] Recently Relevant to Health Maintenance Care Teams Outsole Skiver Relationship Specialty Start Date End Date Yosi Coles MD [address] [facility] [place] [address] PCP - General Family Medicine 08/26/23 Tono Reyes MD [address] [place], [place] [address] Referring Physician Obstetrics and Gynecology 02/06/19
--- OUTSIDE RECORDS SUMMARY | 2024-11-24 12:10 | XMS_ITS | CONTINUITY OF CARE DOCUMENT ---
Author Name [facility] Address Unknown Organization [facility] Address [address] [facility] [address] [place] [address] Phone [phone] Care Team Providers Care Vp Global Name Role Phone David ROMAN, Laomnt Unavailable [phone] TANA NOYOLA MD Unavailable INSURANCE PROVIDERS Payer name Policy type / Coverage type [place] red libertarian ID [facility]ALTHCARE AND FAMILY [facility] Medicaid 1 [id number]
--- OUTSIDE RECORDS SUMMARY | 2024-11-24 12:10 | XMS_ITS | Clinical Summary ---
Author Organization [facility] Address [address] [place] [address] Care Team Providers Care Head Of Integrated Media Name Role Phone Tono Reyes MD Unavailable [phone] Yosi Coles MD Primary Care Provider [phone] Allergies No known active allergies Medications HYDROcodone-acet aminophen (NORCO) 5-325 mg per tabletIndication s:Pain Take 1 tablet by mouth every 6 (six) hours as needed for pain 10 tablet 08/26/2023 Active Active Problems Problem Noted Date Diagnosed Date Strep pharyngitis 08/26/2023 Hepatitis C 03/20/2019 Supervision of high-risk , unspecified trimester 03/13/2019 Overview (03/13/2019): [] Co-management vs. [] Full [facility] Care; Referring Provider: Tono Reyes [phone] [x] Dating Criteria: LMP 10/30/18; [place] 01/12/19 [...] [] MOC: [] Method of feeding: [] Preliminary School Psychologist: [] PP Depression Discussed: Social History Tobacco [...] Comments Blood Pressure 164/87 08/26/2023 11:15 AM DRUM BUILDER Pulse 84 08/26/2023 11:15 AM DRUM BUILDER Temperature 36.5 C (97.7 F) 08/26/2023 8:57 AM DRUM BUILDER Respiratory Rate 18 08/26/2023 11:15 AM DRUM BUILDER Oxygen Saturation 97% 08/26/2023 11:15 AM DRUM BUILDER Inhaled Oxygen Concentration - - Weight 95.3 kg (210 lb) 08/26/2023 8:57 AM DRUM BUILDER Height 165.1 cm (5' 5) 08/26/2023 8:57 AM DRUM BUILDER Body Mass Index 34.95 08/26/2023 8:57 AM DRUM BUILDER Plan of Treatment Health Maintenance Due Date [...] Recently Relevant to Health Maintenance Care Teams Head Of Integrated Media Relationship Specialty Start Date End Date Yosi Coles MD [address] [place] [address] [place] [address] PCP - General Family Medicine 08/26/23 Tono Reyes MD [address] [facility] [place] [place] [address] Referring Physician Obstetrics and Gynecology 02/06/19
--- OUTSIDE RECORDS SUMMARY | 2024-11-24 12:10 | XMS_ITS | Clinical Summary ---
Author Organization [facility] Address [address] [place] [address] Care Team Providers Care Tire Man Name Role Phone Unavailable Primary Care Provider Unavailabl e Source Comments [facility],non-owned Affiliates and Associated Physician Practices is amultiple site organization consisting of ambulatory clinics and hospital sitesin [place], [place], [place] and [place]. This disclosure is being madepursuant to the Care Everywhere program and may not contain all information available regarding this patient. Last updated 18.[facility] [employer] Social History Tobacco Use Types Packs/Day Years Used Date Smoking Tobacco: Every Day Alcohol Use Standard Drinks/Week Comments No 0 (1 standard drink = 0.6 oz pur e alcohol) Comments Unknown Sex and Gender Information Value Date Recorded Sex Assigned at Not on file Legal Sex Female 6:45 PM DYE HOUSE WORKER Gender Identity Not on file Sexual Orientation [...] patient's age to complete this topic Insurance [facility]
--- OUTSIDE RECORDS SUMMARY | 2024-11-24 12:10 | XMS_ITS | Continuity of Care Document ---
Author Organization [facility] Address [address] [place] [address] [address] [place] [address] Phone Care Team Providers Care Faculty Support Coordinator Name Role Phone Boyd OD, Amrik Unavailable Unavailable Procedures Procedure Date Eye Exam, New Patient Refraction Advance Directives Directive Yes / No Effective Date File Name No Information Encounters Encounter Description Practice Location Reason(s) For Visit Diagnoses Date Provider Providers Copied on Encounter [facility], [address] [place] [address] [address], [place], [place], [id number], [place] tel:[phone] SEC [facility] No Information 5-200 7 Boyd OD Amrik. [address] [facility] [place] , [address], [place], [address], [place]. tel:[phone] Family History Family Member Type Diagnosis Age At Onset No Information Payers Payer name Insurance type Covered alliance party ID Authoriza tion(s) Medicaid [facility] [id number] Social History Type Description Quantity Date Captured [...]
--- OUTSIDE RECORDS SUMMARY | 2024-11-24 12:10 | XMS_ITS | Referral Summary ---
Author Organization [facility] Address [address] [place] [address] Care Team Providers Care Doctor Of Podiatric Medicine Name Role Phone Tono Reyes MD Unavailable [phone] Yosi Coles MD Primary Care Provider [...] Overview (03/13/2019): [] Co-management vs. [] Full [facility] Care; Referring Provider: Tono Reyes [phone] [x] Dating Criteria: LMP 10/30/18; [place] 01/12/19 [...] [] MOC: [] Method of feeding: [] Tire Maintenance Technician: [] PP Depression Discussed: Social History Tobacco [...] Comments Blood Pressure 164/87 08/26/2023 11:15 AM SCRAP METAL BURNER Pulse 84 08/26/2023 11:15 AM SCRAP METAL BURNER Temperature 36.5 C (97.7 F) 08/26/2023 8:57 AM SCRAP METAL BURNER Respiratory Rate 18 08/26/2023 11:15 AM SCRAP METAL BURNER Oxygen Saturation 97% 08/26/2023 11:15 AM SCRAP METAL BURNER Inhaled Oxygen Concentration - - Weight 95.3 kg (210 lb) 08/26/2023 8:57 AM SCRAP METAL BURNER Height 165.1 cm (5' 5) 08/26/2023 8:57 AM SCRAP METAL BURNER Body Mass Index 34.95 08/26/2023 8:57 AM SCRAP METAL BURNER Plan of Treatment Not on file Procedures [...] Recently Relevant to Health Maintenance Care Teams Doctor Of Podiatric Medicine Relationship Specialty Start Date End Date Yosi Coles MD [address] [facility] [place] [address] PCP - General Family Medicine 08/26/23 Tono Reyes MD [address] [place], [place] [address] Referring Physician Obstetrics and Gynecology 02/06/19
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
[2024-11-24 12:38] LABS: Basophils Percent Auto 0.5 % (0.2-1.2); Eosinophils Absolute Auto 0.1 K/mm3 (0-0.3); Immature Granulocyte Absolute 0.02 K/mm3 (0.00-0.031); Immature Granulocyte Percent A 0.3 % (0-0.5); Lymphocytes Absolute Auto 1.81 K/mm3 (0.9-3.2); Lymphocytes Percent Auto 29.3 % (18.3-44.2); Mean Corpuscular HGB Conc 32.6 g/dl (32-36); Mean Corpuscular Hemoglobin 29.1 pg (26-34); Mean Corpuscular Volume 89.4 fl (80-100); Mean Platelet Volume 9.6 fl (7.4-10.4); Monocytes Absolute Auto 0.4 K/mm3 (0.1-0.6); Monocytes Percent Auto 5.7 % (2.6-8.5); Neutrophils Absolute Auto 3.9 K/mm3 (1.3-6.7); Neutrophils Percent Auto 63.2 % (45.5-73.1); Platelet Count Result 311 k/mm3 (150-375); Red Blood Count 4.81 M/mm3 (4.2-5.4); Red Cell Distribution Width 13.2 % (11.5-14.5); White Blood Count 6.2 K/mm3 (4.5-10.0)
[2024-11-24 12:51] LABS: Alanine Aminotransferase 58 U/L (6-35); Albumin Level 4.4 g/dL (3.5-5.1); Alkaline Phosphatase 24 U/L (38-126); Anion Gap 8 mmol/L (4-12); Aspartate Amino Transferase 49 U/L (14-36); Bilirubin,Total 0.4 mg/dL (0.2-1.3); Blood Urea Nitrogen 15 mg/dL (7-17); Calcium 9.4 mg/dL (8.4-10.2); Carbon Dioxide 27 mmol/L (22-30); Chloride 106 mmol/L (98-107); Estimated CRCL calculation 113 ml/min; Estimated Glomerular Filt Rate > 60; Glucose 105 mg/dL (65-110); Potassium 4.3 mmol/L (3.4-5.0); Sodium 141 mmol/L (137-145)
[2024-11-24] MEDS: ACETAMINOPHEN 500 MG TABLET 1000 MG PO (13:07)
[2024-11-24 13:09] LABS: BEDSIDEPREGUCG Negative (Negative)
[2024-11-24 14:35] VITALS: BP 117/78; PULSE 72; RESP 18; O2SAT 98
== END 2024-11-24 14:36 | disposition home or self-care (01) ==
PROVIDERS: Emergency Provider Physician Assistant; PCP Family Medicine
DX: S16.1XXA Strain of muscle, fascia and tendon at neck level, initial encounter (principal); Z97.5 Presence of (intrauterine) contraceptive device; V49.40XA Driver injured in collision with unspecified motor vehicles in traffic accident, initial encounter
CPT/HCPCS: 36415; 70450; 71260; 72125; 74177; 80053; 81025; 85025; 99284; A9270; Q9967